=== PATIENT | female | born 1935 | race Caucasian/White ===

== ENCOUNTER → 2017-04-16 | Day surgery (SDC) | payer MEDICARE, BC ==
[~2017-04-16] MED LIST: Lactated Ringers 1,000 ML IV SCH; Propofol 200 MG/20 ML SDV IV ONE
[2017-04-16 08:30] VITALS: BP 121/62
--- NOTE | 2017-04-16 12:49 | OR ---
DATE OF OPERATION: 04/16/2017 PREOPERATIVE DIAGNOSIS: FOLLOWUP POLYPS. POSTOPERATIVE DIAGNOSIS: FOLLOWUP POLYPS. SURGEON: Campbell العلي MD PROCEDURE: FULL-LENGTH COLONOSCOPY WITH HYPERPLASTIC POLYP REMOVAL X4. ANESTHESIA: SUPPLY CATALOGUER due to advanced age. COMPLICATIONS: None. SPECIMEN: Four separate small polyps, likely all hyperplastic. FINDINGS: 1. Full-length colonoscopy. 2. Minimal sigmoid diverticulosis. 3. No rectosigmoid polyp recurrence. 4. Four small likely hyperplastic polyps, three right-sided and one rectal. RECOMMENDATIONS: We will give followup recommendations pending path reports. INDICATIONS: Last year Mrs. Mcdonald had a colonoscopy with polyps removed. 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 We recommended a 1-year followup. DESCRIPTION OF PROCEDURE: The patient was prepped and draped, placed in the left lateral decubitus position. A lubricated Olympus colonoscope was inserted and ultimately advanced to the cecum where we directly visualized the ileocecal valve and appendiceal orifice. The bowel prep was adequate. The patient is tortuous along her transverse colon, which makes it scope a little tougher to pass, but we safely reached the cecal pouch. Upon withdrawal, the cecum and the proximal ascending colon appeared benign. Last year, the patient did have a flat adenoma along the haustral fold. I could not find any evidence of that today. Thorough searching was done there. Near the hepatic flexure in the distal ascending colon, the patient had 3 small hyperplastic appearing polyps, all removed in their entirety with cold forceps biopsy x2 at each site. The rest of the transverse and descending colon was benign. The patient did have a few diverticula in the sigmoid colon, but very minimal. No acute inflammatory changes. There were no vascular abnormalities or bleeding sites. No signs of colitis. We did evaluate the rectosigmoid junction for any polyp recurrence. I could find none. The rectal vault itself appeared benign. She did have one another small hyperplastic polyp which was removed with a cold forceps biopsy x2. Perianal area appeared benign. Air was suctioned. Scope was removed without complication. JOSEFA/MYNOR /[id number]
== END ==
LOC: CC.SDS 06:50
PROVIDERS: ATTEND Family Medicine
DX: Z12.11 Encounter for screening for malignant neoplasm of colon (principal); D12.2 Benign neoplasm of ascending colon; D12.8 Benign neoplasm of rectum; K57.30 Diverticulosis of large intestine without perforation or abscess without bleeding; I48.91 Unspecified atrial fibrillation; I11.0 Hypertensive heart disease with heart failure; I50.9 Heart failure, unspecified; E78.00 Pure hypercholesterolemia, unspecified; I25.2 Old myocardial infarction; F17.210 Nicotine dependence, cigarettes, uncomplicated; Z88.1 Allergy status to other antibiotic agents; Z88.8 Allergy status to other drugs, medicaments and biological substances; Z95.1 Presence of aortocoronary bypass graft; Z95.5 Presence of coronary angioplasty implant and graft; Z79.01 Long term (current) use of anticoagulants; Z79.899 Other long term (current) drug therapy; Z98.890 Other specified postprocedural states
CPT/HCPCS: 36415; 45380; 85610; J2704; J7120; 00810; 88305

== ENCOUNTER 2019-05-28 12:27 | Emergency (ER) | payer MEDICARE, BC ==
[2019-05-28] MEDS ORDERED: Nitroglycerin 2% Oint 1 GM UD Packet TOP ONE (13:20)
[2019-05-28] MEDS ORDERED: Sodium Chloride 0.9% 1,000 ML IV ONE (13:20)
--- NOTE | 2019-05-28 13:26 | EDM.PDOC ---
ED HPI GENERAL MEDICAL PROBLEM - General Chief Complaint: Chest Pain Stated Complaint: "Having left arm pain and chest pain" Time Seen by Provider: 05/28/19 12:52 Source of Information: Reports: Patient, Family History Limitations: Reports: No Limitations - History of Present Illness INITIAL COMMENTS - FREE TEXT/NARRATIVE: This patient is an 84 year old female that presents to the ER with daughter. Patient reports for the last 2 weeks she has had a pain in her left chest that radiates down the left arm. Patient reports that the pain comes and goes, but more often than not, its present. Patient reports she does not notice anything makes it better or worse. The daughter reports patient does complain more when patient is walking or active. Patient reports that she was seen by her PCP for CP and Dizziness. She reports that on Wednesday she had a carotid US performed that was normal. Her PCP saw her and ordered a stress test that was done 05/25/19. Patient reports the nurse called patient with results telling her the Stress test was abnormal and she made her a electroplater automatic appointment for June 12. The patient reports she still continued to have chest pain. She reports that this morning the chest pain became worse in nature. Onset Date: 05/14/19 Duration: Week(s): (2) Location: Reports: Chest, Radiates to (left arm) Quality: Reports: Other ("Heavy") Severity: Mild Improves with: Reports: None Worsens with: Reports: None Associated Symptoms: Reports: Chest Pain, Shortness of Breath. Denies: Confusion, Cough, cough w sputum, Diaphoresis, Fever/Chills, Headaches, Loss of Appetite, Malaise, Nausea/Vomiting, Rash, Seizure, Syncope, Weakness Left Arm Pain Score (Numeric/FACES): 6 - Related Data Allergies Allergy/AdvReac Type Severity Reaction Status Date / Time amoxicillin trihydrate Allergy Cannot Verified 05/28/19 12:56 [From Augmentin] Remember atorvastatin calcium Allergy Cannot Verified 05/28/19 12:56 [From Lipitor] Remember pitavastatin calcium Allergy Cannot Verified 05/28/19 12:56 [From Livalo] Remember potassium clavulanate Allergy Cannot Verified 05/28/19 12:56 [From Augmentin] Remember rosuvastatin calcium Allergy Cannot Verified 05/28/19 12:56 [From Crestor] Remember simvastatin [From Zocor] Allergy Cannot Verified 05/28/19 12:56 Remember Home Meds: Home Meds Acetaminophen [Tylenol] 325 mg PO DAILY PRN 04/13/16 [History] Isosorbide Mononitrate [Isosorbide Mononitrate ER] 30 mg PO DAILY 04/13/16 [ History] Lisinopril [Prinivil] 2.5 mg PO DAILY 04/13/16 [History] Metoprolol Succinate [Toprol XL] 50 mg PO DAILY 04/13/16 [History] Warfarin Sodium 4 mg PO DAILY 04/13/16 [History] Acetaminophen/Diphenhydramine [Acetaminophen Pm Gelcap] 1 each PO BEDTIME [History] Past Medical History Cardiovascular History: Reports: Afib, Bypass, High Cholesterol, Hypertension, SOB on Exertion, Stents ED ROS GENERAL - Review of Systems Review Of Systems: See Below Constitutional: Reports: No Symptoms HEENT: Reports: No Symptoms Respiratory: Reports: Shortness of Breath. Denies: Cough, Sputum Cardiovascular: Reports: Chest Pain, Dyspnea on Exertion. Denies: Edema Endocrine: Reports: No Symptoms GI/Abdominal: Reports: No Symptoms : Reports: No Symptoms Musculoskeletal: Reports: No Symptoms Skin: Reports: No Symptoms Neurological: Reports: No Symptoms Psychiatric: Reports: No Symptoms Hematologic/Lymphatic: Reports: No Symptoms Immunologic: Reports: No Symptoms ED EXAM, GENERAL - Physical Exam Exam: See Below Exam Limited By: No Limitations General Appearance: Alert, WD/WN, Moderate Distress (known abnormal stress test with CP) Eye Exam: Bilateral Eye: Normal Inspection, PERRL Ears: Normal External Exam, Normal Canal, Hearing Grossly Normal, Normal TMs Ear Exam: Bilateral Ear: Auricle Normal, Canal Normal, TM normal Nose: Normal Inspection, Normal Mucosa, No Blood Throat/Mouth: Normal Inspection, Normal Lips, Normal Teeth, Normal Gums, Normal Oropharynx, Normal Voice, No Airway Compromise Head: Atraumatic, Normocephalic Neck: Normal Inspection, Supple, Non-Tender, Full Range of Motion Respiratory/Chest: No Respiratory Distress, Lungs Clear, Normal Breath Sounds, No Accessory Muscle Use, Chest Non-Tender Cardiovascular: Normal Peripheral Pulses, No Edema, No Gallop, No JVD, No Murmur , No Rub, Irregularly Irregular (Rate 90) Peripheral Pulses: 2+: Carotid (L), Carotid (R), Radial (L), Radial (R), Posterior Tibial (L), Posterior Tibial (R), Dorsalis Pedis (L), Dorsalis Pedis ( R) GI/Abdominal: Normal Bowel Sounds, Soft, Non-Tender, No Organomegaly, No Distention, No Abnormal Bruit, No Mass, Pelvis Stable (Female) Exam: Deferred Rectal (Female) Exam: Deferred Back Exam: Normal Inspection, Full Range of Motion Extremities: Normal Inspection, Normal Range of Motion, Non-Tender, No Pedal Edema, Normal Capillary Refill Neurological: Alert, Oriented, Normal Cognition, Normal Gait, No Motor/Sensory Deficits Psychiatric: Normal Affect, Normal Mood Skin Exam: Warm, Dry, Intact, Normal Color, No Rash Lymphatic: No Adenopathy EKG INTERPRETATION EKG Date: 05/28/19 Time: 12:30 Rhythm: A-Fib Rate (Beats/Min): 91 Comparison: No Change Course - Vital Signs Last Recorded V/S: Last Vital Signs Temp 96.8 F 05/28/19 12:30 Pulse 97 05/28/19 12:30 Resp 20 05/28/19 12:30 BP 121/74 05/28/19 12:30 Pulse Ox - Orders/Labs/Meds Orders: Active Orders 24 hr Category Date Time Status Chest 2V [CR] Stat Exams 05/28/19 12:56 Taken Labs: Laboratory Tests 05/28/19 05/28/19 05/28/19 Range/Units 12:57 12:57 13:21 WBC 10.8 H (5.0-10.0) 10^3/uL RBC 4.31 (4.00-5.50) 10^6/uL Hgb 13.3 (12.0-16.0) g/dL Hct 40.7 (37.0-47.0) % MCV 94.4 H (82.0-94.0) fL MCH 30.9 (27.0-32.0) pg MCHC 32.7 L (33.0-38.0) g/dL RDW Coeff of Anne 14.5 (11.0-15.0) % Plt Count 216 (150-400) 10^3/uL Neut % (Auto) 65.0 (35-85) % Lymph % (Auto) 22.8 (10-55) % [place] % (Auto) 10.7 (0-16) % Eos % (Auto) 0.9 (0-5) % Baso % (Auto) 0.6 (0-3) % Neut # (Auto) 7.01 H (1.80-7.00) 10^3/uL Lymph # (Auto) 2.46 (1.00-4.80) 10^3/uL [place] # (Auto) 1.15 H (0.00-0.80) 10^3/uL Eos # (Auto) 0.10 (0.00-0.45) 10^3/uL Baso # (Auto) 0.06 10^3/uL PT 18.3 H (9.7-12.3) SEC INR 1.84 H (0.92-1.18) POC Sodium 140 (138-146) mmol/L POC Potassium 4.1 (3.5-4.9) mmol/L POC Chloride 100 (98-109) mmol/L POC Total CO2 25 (21-32) mmol/L POC BUN 15 (8-26) mg/dL POC Creatinine 0.8 (0.6-1.3) mg/dL POC Glucose 99 (70-99) mg/dL POC WB Ioniz Calcium 1.2 (1.12-1.32) Meds: Medications Discontinued Medications Generic Name Dose Route Start Last Admin Trade Name Freq PRN Reason Stop Dose Admin Aspirin 324 mg 05/28/19 13:36 05/28/19 13:04 Aspirin PO 05/28/19 13:37 324 mg ONETIME ONE Administration Sodium Chloride 1,000 mls @ 250 mls/hr 05/28/19 13:20 05/28/19 13:44 Normal Saline IV 05/28/19 17:19 250 mls/hr .BOLUS ONE Administration Nitroglycerin 0.5 gm 05/28/19 13:20 05/28/19 13:41 Nitro-Bid 2% TOP 05/28/19 13:21 0.5 gm ONETIME ONE Administration - Radiology Interpretation Free Text/Narrative:: CXR: NO acute changes - Re-Assessments/Exams Free Text/Narrative Re-Assessment/Exam: 05/28/19 13:33 Currently lab has some machine issues and is unable to run a CMP or troponin. I have ordered CBC, Bmp, and PT/INR. I also called [facility] to obtain stress test report. I have reviewed this stress result. It does show "Anterior and ateral wall ischemia suspicious for left coronary artery disease, possible left main. Recommend cardiology consultation and left heart catheterization." I then , called [facility] [address] and spoke to the ER Dr. Mantilla who has accepted transfer of the patient. Since patient has had the pain for 2 weeks, no EKG changes, will transfer via ground and hold on heparin. Will give nitro paste, asa, and fluids. The patient upon arrival into the ER, her pain is currently a 0 /10. Patient does report she is concerned it will return, because this is what her pain has been doing. Departure - Departure Time of Disposition: 13:27 Disposition: DC/Tfer to Acute Hospital 02 Reason for Transfer *Q: Primary PCI Indicated Condition: Serious Clinical Impression: Acute coronary syndrome, Chest pain due to CAD Referrals: PCP,Unknown [Primary Care Provider] - Forms: ED Department Discharge - My Orders Last 24 Hours: My Active Orders 05/28/19 12:56 Chest 2V [CR] Stat - Assessment/Plan Last 24 Hours: My Active Orders 05/28/19 12:56 Chest 2V [CR] Stat Plan: PLEASE SEE RN NOTE FOR PFSH. This patient is being transferred to [facility] [address]. The patient will go to the ER. Risks with the transfer are worsening of ischemia, CP, worsening of condition, , cardiac arrest. The benefits of transfer are cardiology consult, cardiac cath, cardiac intervention, higher level of care. The risks with staying in [facility] are continued cardiac ischemia, worsening of condition with possible cardiac , , continued CP. The benefits of staying in [facility] is close to home.
[2019-05-28 13:32] VITALS: BP 121/74
[2019-05-28] MEDS ORDERED: Aspirin 81 MG Tab.Chew PO ONE (13:36)
== END 2019-05-28 14:15 ==
LOC: CC.ED 12:27
DX: I24.9 Acute ischemic heart disease, unspecified (principal); I48.91 Unspecified atrial fibrillation; E78.00 Pure hypercholesterolemia, unspecified; I10 Essential (primary) hypertension; Z95.5 Presence of coronary angioplasty implant and graft; Z88.1 Allergy status to other antibiotic agents; Z88.8 Allergy status to other drugs, medicaments and biological substances; Z79.899 Other long term (current) drug therapy; Z79.01 Long term (current) use of anticoagulants
CPT/HCPCS: 36415; 71046; 80047; 85025; 85610; 99284; 99285-25; A9270-GY; J7030

== ENCOUNTER 2019-08-25 12:09 | Inpatient (IN) | payer MEDICARE, BC ==
[2019-08-25 12:43] LABS: CHLORIDE,CL 104 mEq/L (98-106); SODIUM,NA 141 mEq/L (136-145)
[2019-08-25] MEDS ORDERED: Acetaminophen 325 MG Tab PO PRN (13:16)
[2019-08-25] MEDS ORDERED: Furosemide 20 MG/2 ML VIAL IVPUSH ONE (13:16)
[2019-08-25] MEDS ORDERED: Pantoprazole 40 MG Vial IVPUSH SCH (13:30)
[2019-08-25] MEDS ORDERED: Sodium Chloride 0.9% 250 ML ONE (14:58)
[2019-08-25] MEDS ORDERED: Sodium Chloride 0.9% 250 ML IV SCH (15:30)
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
[2019-08-25 22:17] VITALS: BP 135/59; PULSE 112
[2019-08-26] MEDS ORDERED: Metoprolol Succinate 25 MG Tab.ER PO SCH (08:00)
[2019-08-26] MEDS ORDERED: Isosorbide Mononitrate 30 MG Tab.ER PO SCH (08:00)
[2019-08-26] MEDS ORDERED: PRAVASTATIN PO SCH (08:00)
[2019-08-26] MEDS ORDERED: Lisinopril 5 MG Tab PO SCH (08:00)
== END 2019-08-25 23:03 | DRG 281 ==
LOC: CC.FCMC 12:09 → CC.MS 12:09 → UNDOADMIN 13:07 → CC.MS 13:16
PROVIDERS: ADMIT Physician Assistant Medical; ATTEND Family Medicine
PROC: 30233N1 Transfusion of Nonautologous Red Blood Cells into Peripheral Vein, Percutaneous Approach (ICD-10-PCS; principal; 2019-08-25)
DX: I21.4 Non-ST elevation (NSTEMI) myocardial infarction (principal); K92.2 Gastrointestinal hemorrhage, unspecified; R42 Dizziness and giddiness; D64.9 Anemia, unspecified; I48.91 Unspecified atrial fibrillation; I50.9 Heart failure, unspecified; Z79.899 Other long term (current) drug therapy; Z79.82 Long term (current) use of aspirin; Z88.1 Allergy status to other antibiotic agents; Z88.8 Allergy status to other drugs, medicaments and biological substances; Z79.01 Long term (current) use of anticoagulants
CPT/HCPCS: 36415; 36430; 71046; 80053; 81001; 82150; 82550; 82728; 83540; 83550; 83615; 83880; 84484; 85018; 85025; 85610; 86850; 86900; 86901; 86920; 86922; 93005; C9113; J1940; P9016

== ENCOUNTER 2020-02-13 13:36 | Observation (INO) | payer MEDICARE, BC ==
[2020-02-13 14:12] LABS: PTT,PARTIAL THROMBOPLSTIN TIME 27.5 SEC (23.2-32.3)
--- NOTE | 2020-02-13 14:17 | EDM.PDOC ---
ED HPI GENERAL MEDICAL PROBLEM - General Chief Complaint: Chest Pain Stated Complaint: HEART ISSUES Time Seen by Provider: 02/13/20 14:05 Source of Information: Reports: Patient, Family History Limitations: Reports: No Limitations - History of Present Illness INITIAL COMMENTS - FREE TEXT/NARRATIVE: Bertha is an 84 year old female with PMH of CAD, a fib, hyperlipidemia, mitral regurgitation, GI bleed, hypertension, PAD, and current daily tobacco use, who presents to the ED with c/o left anterior chest pain. Reports the pain initially started this morning. Describes the pain as a dull ache. She reports chronic shortness of breath, does not feel it is worse than baseline. Has also been having occasional episodes of dizziness/lightheadedness and weakness over the last month or so. She reports when she has these episodes, she has to lie down in order to feel better. Denies any fever, malaise, cough, N/V/D, abdominal pain, dysuria, urinary frequency, urgency. 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 She is managed medically. Did have to stop antiplatelets and anticoagulation due to GI bleed this past fall. She reports she did however restart her 81 mg aspirin about 1 month ago. She does continue to smoke 1ppd, for approximately the past 58 years. Onset: Today Duration: Constant Location: Reports: Chest Quality: Reports: Ache Severity: Mild Associated Symptoms: Reports: Chest Pain, Shortness of Breath, Weakness. Denies : Confusion, Cough, cough w sputum, Diaphoresis, Fever/Chills, Headaches, Loss of Appetite, Malaise, Nausea/Vomiting, Rash, Seizure, Syncope Left Upper Chest Pain Score (Numeric/FACES): 2 - Related Data Allergies Allergy/AdvReac Type Severity Reaction Status Date / Time amoxicillin trihydrate Allergy Cannot Verified 02/13/20 14:25 [From Augmentin] Remember atorvastatin calcium Allergy Cannot Verified 02/13/20 14:25 [From Lipitor] Remember pitavastatin calcium Allergy Cannot Verified 02/13/20 14:25 [From Livalo] Remember potassium clavulanate Allergy Cannot Verified 02/13/20 14:25 [From Augmentin] Remember rosuvastatin calcium Allergy Cannot Verified 02/13/20 14:25 [From Crestor] Remember simvastatin [From Zocor] Allergy Cannot Verified 02/13/20 14:25 Remember Home Meds: Home Meds Acetaminophen [Tylenol] 325 mg PO DAILY PRN 04/13/16 [History] Isosorbide Mononitrate [Isosorbide Mononitrate ER] 30 mg PO DAILY 04/13/16 [ History] Lisinopril [Prinivil] 2.5 mg PO DAILY 04/13/16 [History] Metoprolol Succinate [Toprol XL] 50 mg PO DAILY 04/13/16 [History] Acetaminophen/Diphenhydramine [Acetaminophen Pm Gelcap] 1 each PO BEDTIME [History] Aspirin 1 tab PO DAILY 08/25/19 [History] Pravastatin [Pravachol] 1 tab PO DAILY 08/25/19 [History] Past Medical History Cardiovascular History: Reports: Afib, Bypass, High Cholesterol, Hypertension, SOB on Exertion, Stents [employer] History: Reports: Social & Family History - Family History Family Medical History: Noncontributory ED ROS GENERAL - Review of Systems Review Of Systems: Comprehensive ROS is negative, except as noted in HPI. ED EXAM, GENERAL - Physical Exam Exam: See Below Exam Limited By: No Limitations General Appearance: Alert, WD/WN, No Apparent Distress Eye Exam: Bilateral Eye: EOMI, Normal Fundi, Normal Inspection, PERRL Head: Atraumatic, Normocephalic Neck: Normal Inspection, Supple, Non-Tender, Full Range of Motion Respiratory/Chest: No Respiratory Distress, Lungs Clear, No Accessory Muscle Use , Chest Non-Tender, Decreased Breath Sounds Cardiovascular: Normal Peripheral Pulses, No Edema, No Gallop, No JVD, No Rub, Systolic Murmur, Irregularly Irregular GI/Abdominal: Normal Bowel Sounds, Soft, Non-Tender, No Organomegaly, No Distention, No Abnormal Bruit, No Mass Back Exam: Normal Inspection, Full Range of Motion, NT Extremities: Normal Inspection, Normal Range of Motion, Non-Tender, Normal Capillary Refill, No Pedal Edema Neurological: Alert, Oriented, CN II-XII Intact, Normal Cognition, Normal Gait, Normal Reflexes, No Motor/Sensory Deficits Psychiatric: Normal Affect, Normal Mood Skin Exam: Warm, Dry, Intact, Normal Color, No Rash Course - Vital Signs Last Recorded V/S: Last Vital Signs Temp 97.5 F 02/13/20 15:12 Pulse 75 02/13/20 15:12 Resp 16 02/13/20 15:12 BP 105/67 02/13/20 15:12 Pulse Ox 98 02/13/20 15:12 - Orders/Labs/Meds Orders: Active Orders 24 hr Category Date Time Status Patient Status [ADT] Routine ADT 02/13/20 16:09 Active Cardiac Monitoring [RC] CONTINUOUS Care 02/13/20 16:09 Active Oxygen Therapy [RC] PRN Care 02/13/20 16:09 Active Pulse Oximetry [RC] PRN Care 02/13/20 16:09 Active Up With Assistance [RC] ASDIRECTED Care 02/13/20 16:09 Active VTE/DVT Education [RC] PER UNIT ROUTINE Care 02/13/20 16:09 Active Vital Signs [RC] Q4H Care 02/13/20 16:09 Active Heart Healthy Diet [DIET] Diet 02/13/20 Dinner Active Chest 2V [CR] Routine Exams 02/13/20 Taken CREATINE KINASE,CK [CHEM] Timed Lab 02/13/20 18:00 Ordered CULTURE URINE [RM] Stat Lab 02/13/20 15:00 Received LACTATE DEHYDROGENASE,LDH [CHEM] Timed Lab 02/13/20 18:00 Ordered TROPONIN I [CHEM] Timed Lab 02/13/20 18:00 Ordered Acetaminophen [Tylenol] Med 02/13/20 16:09 Active 325 mg PO DAILY PRN Acetaminophen [Tylenol] Med 02/13/20 16:09 Active 650 mg PO Q4H PRN Acetaminophen/Diphenhydramine [Acetaminophen Pm Gelcap] Med 02/13/20 20:00 Pending 1 each PO BEDTIME Aspirin [Halfprin] Med 02/14/20 08:00 Active 81 mg PO DAILY Enoxaparin [Lovenox] Med 02/13/20 20:00 Active 40 mg SUBCUT Q24H Isosorbide Mononitrate [Imdur] Med 02/14/20 08:00 Pending 30 mg PO DAILY Lisinopril [Prinivil] Med 02/14/20 08:00 Pending 0 mg PO DAILY Metoprolol Succinate [Toprol XL] Med 02/14/20 08:00 Pending 0 mg PO DAILY Nitroglycerin [Nitro-Bid 2%] Med 02/13/20 16:09 Ordered 1 gm TOP Q8H Pravastatin Med 02/14/20 08:00 Active 1 tab PO DAILY Sodium Chloride 0.9% [Saline Flush] Med 02/13/20 16:09 Active 10 ml FLUSH ASDIRECTED PRN Temazepam [Restoril] Med 02/13/20 20:00 Pending 15 mg PO BEDTIME PRN cefTRIAXone [Rocephin] Med 02/13/20 16:30 Active 1 gm IVPUSH BEDTIME Saline Lock Insert [OM.PC] Routine Oth 02/13/20 16:09 Ordered Resuscitation Status Routine Resus Stat 02/13/20 15:38 Ordered EKG 12 Lead [EK] Routine Ther 02/13/20 18:00 Ordered Medication Orders Acetaminophen (Tylenol) 650 mg PO Q4H PRN PRN Reason: Pain (Mild 1-3)/fever Acetaminophen (Tylenol) 325 mg PO DAILY PRN PRN Reason: Pain Aspirin (Halfprin) 81 mg PO DAILY [facility] Ceftriaxone Sodium (Rocephin) 1 gm IVPUSH BEDTIME [facility] Enoxaparin Sodium (Lovenox) 40 mg SUBCUT Q24H [facility] Isosorbide Mononitrate (Imdur) 30 mg PO DAILY [facility] Nitroglycerin (Nitro-Bid 2%) 1 gm TOP Q8H [facility] Acetaminophen/Diphenhydramine [ Acetaminophen Pm Gelcap] 1 1 each PO BEDTIME [facility] Lisinopril [Prinivil (] 2.5 Mg) 0 mg PO DAILY [facility] Metoprolol Succinate ([Toprol Xl] 50 Mg) 0 mg PO DAILY [facility] Non-Formulary Medication (Pravastatin) 1 tab PO DAILY [facility] Sodium Chloride (Saline Flush) 10 ml FLUSH ASDIRECTED PRN PRN Reason: Keep Vein Open Temazepam (Restoril) 15 mg PO BEDTIME PRN PRN Reason: Sleep Labs: Laboratory Tests 02/13/20 02/13/20 02/13/20 Range/Units 13:58 13:58 14:00 WBC 9.3 (5.0-10.0) 10^3/uL RBC 4.30 (4.00-5.50) 10^6/uL Hgb 12.9 (12.0-16.0) g/dL Hct 40.0 (37.0-47.0) % MCV 93.0 (82.0-94.0) fL MCH 30.0 (27.0-32.0) pg MCHC 32.3 L (33.0-38.0) g/dL RDW Coeff of Anne 16.8 H (11.0-15.0) % Plt Count 206 (150-400) 10^3/uL Neut % (Auto) 67.4 (35-85) % Lymph % (Auto) 20.6 (10-55) % Laurens % (Auto) 10.9 (0-16) % Eos % (Auto) 0.8 (0-5) % Baso % (Auto) 0.3 (0-3) % Neut # (Auto) 6.27 (1.80-7.00) 10^3/uL Lymph # (Auto) 1.91 (1.00-4.80) 10^3/uL [place] # (Auto) 1.01 H (0.00-0.80) 10^3/uL Eos # (Auto) 0.07 (0.00-0.45) 10^3/uL Baso # (Auto) 0.03 10^3/uL PT 10.8 (9.7-12.3) SEC INR 1.05 (0.92-1.18) APTT 27.5 (23.2-32.3) SEC Sodium 138 (136-145) mEq/L Potassium 3.7 (3.5-5.0) mEq/L Chloride 101 (98-106) mEq/L Carbon Dioxide 29 (21-32) mmol/L BUN 17 (7-18) mg/dL Creatinine 0.9 (0.6-1.0) mg/dL Est Cr Clr Drug Dosing 38.49 mL/min Estimated GFR (MDRD) 60 (>=60) mL/min Glucose 101 H (75-99) mg/dL Calcium 9.2 (8.4-10.1) mg/dL Total Bilirubin 0.7 (0.0-1.0) mg/dL AST 17 (15-37) U/L ALT 16 (12-78) U/L Alkaline Phosphatase 55 (46-116) U/L Lactate Dehydrogenase 186 (100-190) U/L Creatine Kinase 27 (21-215) U/L Troponin I 0.244 H (0.00-0.06) ng/mL Total Protein 7.4 (6.4-8.2) g/dL Albumin 3.7 (3.4-5.0) g/dL Lipase 159 (73-393) U/L Urine Color (YELLOW) Urine Appearance (CLEAR) Urine pH (4.5-8.0) Ur Specific [place] (1.003-1.020) Urine Protein (NEGATIVE) mg/dL Urine Glucose (UA) (NEGATIVE) mg/dL Urine Ketones (NEGATIVE) mg/dL Urine Occult Blood (NEGATIVE) Urine Nitrite (NEGATIVE) Urine Bilirubin (NEGATIVE) Urine Urobilinogen (0.2-1.0) EU/dL Ur Leukocyte Esterase (NEGATIVE) Urine RBC (0-5) /HPF Urine WBC (0-5) /HPF Ur Squamous Epith Cells (NOT SEEN) /HPF Urine Bacteria (NOT SEEN) /HPF Urinalysis Comment 02/13/20 Range/Units 15:00 WBC (5.0-10.0) 10^3/uL RBC (4.00-5.50) 10^6/uL Hgb (12.0-16.0) g/dL Hct (37.0-47.0) % MCV (82.0-94.0) fL MCH (27.0-32.0) pg MCHC (33.0-38.0) g/dL RDW Coeff of Anne (11.0-15.0) % Plt Count (150-400) 10^3/uL Neut % (Auto) (35-85) % Lymph % (Auto) (10-55) % Laurens % (Auto) (0-16) % Eos % (Auto) (0-5) % Baso % (Auto) (0-3) % Neut # (Auto) (1.80-7.00) 10^3/uL Lymph # (Auto) (1.00-4.80) 10^3/uL [place] # (Auto) (0.00-0.80) 10^3/uL Eos # (Auto) (0.00-0.45) 10^3/uL Baso # (Auto) 10^3/uL PT (9.7-12.3) SEC INR (0.92-1.18) APTT (23.2-32.3) SEC Sodium (136-145) mEq/L Potassium (3.5-5.0) mEq/L Chloride (98-106) mEq/L Carbon Dioxide (21-32) mmol/L BUN (7-18) mg/dL Creatinine (0.6-1.0) mg/dL Est Cr Clr Drug Dosing mL/min Estimated GFR (MDRD) (>=60) mL/min Glucose (75-99) mg/dL Calcium (8.4-10.1) mg/dL Total Bilirubin (0.0-1.0) mg/dL AST (15-37) U/L ALT (12-78) U/L Alkaline Phosphatase (46-116) U/L Lactate Dehydrogenase (100-190) U/L Creatine Kinase (21-215) U/L Troponin I (0.00-0.06) ng/mL Total Protein (6.4-8.2) g/dL Albumin (3.4-5.0) g/dL Lipase (73-393) U/L Urine Color Yellow (YELLOW) Urine Appearance Slightly cloudy (CLEAR) Urine pH 6.5 (4.5-8.0) Ur Specific [place]comb 1.010 (1.003-1.020) Urine Protein Negative (NEGATIVE) mg/dL Urine Glucose (UA) Negative (NEGATIVE) mg/dL Urine Ketones Negative (NEGATIVE) mg/dL Urine Occult Blood Large H (NEGATIVE) Urine Nitrite Negative (NEGATIVE) Urine Bilirubin Negative (NEGATIVE) Urine Urobilinogen 0.2 (0.2-1.0) EU/dL Ur Leukocyte Esterase Large H (NEGATIVE) Urine RBC 50-75 H (0-5) /HPF Urine WBC 20-30 H (0-5) /HPF Ur Squamous Epith Cells Occasional H (NOT SEEN) /HPF Urine Bacteria Few H (NOT SEEN) /HPF Urinalysis Comment Meds: Medications Generic Name Dose Route Start Last Admin Trade Name Freq PRN Reason Stop Dose Admin Acetaminophen 650 mg 02/13/20 16:09 Tylenol PO Q4H PRN Pain (Mild 1-3)/fever Acetaminophen 325 mg 02/13/20 16:09 Tylenol PO DAILY PRN Pain Aspirin 81 mg 02/14/20 08:00 Halfprin PO DAILY [facility] Ceftriaxone Sodium 1 gm 02/13/20 16:30 Rocephin IVPUSH BEDTIME [facility] Enoxaparin Sodium 40 mg 02/13/20 20:00 Lovenox SUBCUT Q24H [facility] Isosorbide Mononitrate 30 mg 02/14/20 08:00 Imdur PO DAILY [facility] Nitroglycerin 1 gm 02/13/20 16:09 Nitro-Bid 2% TOP Q8H [facility] Acetaminophen/ 1 each 02/13/20 20:00 Diphenhydramine [ PO Acetaminophen Pm BEDTIME [facility] Gelcap] 1 Lisinopril [Prinivil 0 mg 02/14/20 08:00 ] 2.5 Mg PO DAILY [facility] Metoprolol Succinate 0 mg 02/14/20 08:00 [Toprol Xl] 50 Mg PO DAILY [facility] Non-Formulary Medication 1 tab 02/14/20 08:00 Pravastatin PO DAILY [facility] Sodium Chloride 10 ml 02/13/20 16:09 Saline Flush FLUSH ASDIRECTED PRN Keep Vein Open Temazepam 15 mg 02/13/20 20:00 Restoril PO BEDTIME PRN Sleep Departure - Departure Time of Disposition: 15:25 Disposition: Refer to Observation Condition: Fair Clinical Impression: Chest pain due to CAD UTI (urinary tract infection) Qualifiers: Urinary tract infection type: site unspecified Hematuria presence: with hematuria Qualified Code(s): N39.0 - Urinary tract infection, site not specified ; R31.9 - Hematuria, unspecified Atrial fibrillation Qualifiers: Atrial fibrillation type: permanent Qualified Code(s): I48.21 - Permanent atrial fibrillation Referrals: Campbell العلي MD [Primary Care Provider] - Forms: ED Department Discharge Sepsis Event Note - Focused Exam Vital Signs: Vital Signs Temp Pulse Resp BP Pulse Ox 02/13/20 15:12 97.5 F 75 16 105/67 98 02/13/20 14:57 97.8 F 70 14 117/68 96 02/13/20 14:40 97.4 F 81 14 115/77 98 02/13/20 14:35 97.4 F 80 16 115/77 98 02/13/20 14:25 97.3 F 76 16 118/70 94 L 02/13/20 14:05 97.9 F 81 17 72/38 L 94 L 02/13/20 13:47 98.1 F 83 20 125/74 95 Date Exam was Performed: 02/13/20 Time Exam was Performed: 16:30 - Problem List & Annotations (1) Chest pain due to CAD SNOMED Code(s): 017341307, 567651757 Code(s): I25.119 - ATHSCL HEART DISEASE OF [place] ART W UNSP ANG PCTRS Status: Acute Current Visit: Yes (2) Atrial fibrillation SNOMED Code(s): 63866107 Code(s): I48.91 - UNSPECIFIED ATRIAL FIBRILLATION Status: Acute Current Visit: Yes Qualifiers: Atrial fibrillation type: permanent Qualified Code(s): I48.21 - Permanent atrial fibrillation (3) UTI (urinary tract infection) SNOMED Code(s): 47726704 Code(s): N39.0 - URINARY TRACT INFECTION, SITE NOT SPECIFIED Status: Acute Current Visit: Yes Qualifiers: Urinary tract infection type: site unspecified Hematuria presence: with hematuria Qualified Code(s): N39.0 - Urinary tract infection, site not specified; R31.9 - Hematuria, unspecified - My Orders Last 24 Hours: My Active Orders 02/13/20 Chest 2V [CR] Routine 02/13/20 15:00 CULTURE URINE [RM] Stat 02/13/20 15:38 Resuscitation Status Routine 02/13/20 16:09 Patient Status [ADT] Routine Cardiac Monitoring [RC] CONTINUOUS Oxygen Therapy [RC] PRN Pulse Oximetry [RC] PRN Up With Assistance [RC] ASDIRECTED VTE/DVT Education [RC] PER UNIT ROUTINE Vital Signs [RC] Q4H Acetaminophen [Tylenol] 325 mg PO DAILY PRN Acetaminophen [Tylenol] 650 mg PO Q4H PRN Nitroglycerin [Nitro-Bid 2%] 1 gm TOP Q8H Sodium Chloride 0.9% [Saline Flush] 10 ml FLUSH ASDIRECTED PRN Saline Lock Insert [OM.PC] Routine 02/13/20 16:30 cefTRIAXone [Rocephin] 1 gm IVPUSH BEDTIME 02/13/20 18:00 CREATINE KINASE,CK [CHEM] Timed LACTATE DEHYDROGENASE,LDH [CHEM] Timed TROPONIN I [CHEM] Timed EKG 12 Lead [EK] Routine 02/13/20 20:00 Acetaminophen/Diphenhydramine [Acetaminophen Pm Gelcap] 1 each PO BEDTIME Enoxaparin [Lovenox] 40 mg SUBCUT Q24H Temazepam [Restoril] 15 mg PO BEDTIME PRN 02/13/20 Dinner Heart Healthy Diet [DIET] 02/14/20 08:00 Aspirin [Halfprin] 81 mg PO DAILY Isosorbide Mononitrate [Imdur] 30 mg PO DAILY Lisinopril [Prinivil] 0 mg PO DAILY Metoprolol Succinate [Toprol XL] 0 mg PO DAILY Pravastatin 1 tab PO DAILY - Assessment/Plan Admission H&P: Please use this note as an admission H&P Last 24 Hours: My Active Orders 02/13/20 Chest 2V [CR] Routine 02/13/20 15:00 CULTURE URINE [RM] Stat 02/13/20 15:38 Resuscitation Status Routine 02/13/20 16:09 Patient Status [ADT] Routine Cardiac Monitoring [RC] CONTINUOUS Oxygen Therapy [RC] PRN Pulse Oximetry [RC] PRN Up With Assistance [RC] ASDIRECTED VTE/DVT Education [RC] PER UNIT ROUTINE Vital Signs [RC] Q4H Acetaminophen [Tylenol] 325 mg PO DAILY PRN Acetaminophen [Tylenol] 650 mg PO Q4H PRN Nitroglycerin [Nitro-Bid 2%] 1 gm TOP Q8H Sodium Chloride 0.9% [Saline Flush] 10 ml FLUSH ASDIRECTED PRN Saline Lock Insert [OM.PC] Routine 02/13/20 16:30 cefTRIAXone [Rocephin] 1 gm IVPUSH BEDTIME 02/13/20 18:00 CREATINE KINASE,CK [CHEM] Timed LACTATE DEHYDROGENASE,LDH [CHEM] Timed TROPONIN I [CHEM] Timed EKG 12 Lead [EK] Routine 02/13/20 20:00 Acetaminophen/Diphenhydramine [Acetaminophen Pm Gelcap] 1 each PO BEDTIME Enoxaparin [Lovenox] 40 mg SUBCUT Q24H Temazepam [Restoril] 15 mg PO BEDTIME PRN 02/13/20 Dinner Heart Healthy Diet [DIET] 02/14/20 08:00 Aspirin [Halfprin] 81 mg PO DAILY Isosorbide Mononitrate [Imdur] 30 mg PO DAILY Lisinopril [Prinivil] 0 mg PO DAILY Metoprolol Succinate [Toprol XL] 0 mg PO DAILY Pravastatin 1 tab PO DAILY Assessment:: Chest Pain due to CAD UTI Atrial Fibrillation, permanent Plan: Patient has EKG changes as compared to EKG from 07/2020 in inferior leads. Troponin is indeterminant range. Discussed lab results with patient and daughter. Did discuss potential need for transfer to cardiology consultation if cardiac enzymes worsen. Patient does not wish to transfer but is agreeable to further discussion regarding this once repeat labs are available. Will admit to observation with telemetry for serial cardiac enzymes and EKG. Will continue current dose Imdur and initiate Nitro paste every 8 hrs. Will also start Rocephin for UTI, as this could potentially be cause of patient' s dizziness. Patient transferred to floor in satisfactory condition. Daughter and patient agreeable with plan.
[2020-02-13] MEDS ORDERED: Acetaminophen 325 MG Tab PO PRN ×2 (16:09)
[2020-02-13] MEDS ORDERED: Sodium Chloride 0.9% 10 ML Syringe FLUSH PRN (16:09)
[2020-02-13] MEDS ORDERED: cefTRIAXone 1 GM Vial IVPUSH SCH (16:30)
[2020-02-13] MEDS: Nitroglycerin 2% Oint 1 GM UD Packet TOP SCH (16:40)
[2020-02-13] MEDS ORDERED: cefTRIAXone 1 GM Vial IM ONE (18:00)
[2020-02-13] MEDS ORDERED: Lidocaine 1% 20 ML MDV ONE (18:11)
[2020-02-13] MEDS: Enoxaparin 40 MG/0.4 ML Syringe SUBCUT SCH (19:13)
[2020-02-13] MEDS: Simvastatin 20 MG Tab PO SCH (19:14)
[2020-02-13] MEDS ORDERED: Temazepam 15 MG Cap PO PRN (20:00)
[2020-02-13] MEDS ORDERED: ACETAMINOPHEN PO SCH (20:00)
[2020-02-13] MEDS ORDERED: Isosorbide Mononitrate 30 MG Tab.ER PO SCH (20:00)
[2020-02-13] MEDS ORDERED: DIPHENHYDRAMINE PO SCH (20:00)
[2020-02-14] MEDS: Nitroglycerin 2% Oint 1 GM UD Packet TOP SCH ×2 (00:07→08:03)
[2020-02-14] MEDS ORDERED: PRAVASTATIN PO SCH (08:00)
[2020-02-14] MEDS: Lisinopril 5 MG Tab PO SCH (08:03)
[2020-02-14] MEDS: Aspirin 81 MG Tab.EC PO SCH (08:03)
[2020-02-14] MEDS: Metoprolol Succinate 25 MG Tab.ER PO SCH (08:03)
--- NOTE | 2020-02-14 14:26 | PCM.PN ---
- General Info Date of Service: 02/14/20 Admission Dx/Problem (Free Text): Chest Pain R/O IA Functional Status: Reports: Pain Controlled, Tolerating Diet, Ambulating - Review of Systems General: Denies: Weakness, Fatigue, Malaise HEENT: Reports: No Symptoms Pulmonary: Denies: Shortness of Breath, Cough Cardiovascular: Denies: Chest Pain, Edema, Lightheadedness Gastrointestinal: Denies: Abdominal Pain, Nausea, Vomiting Genitourinary: Reports: No Symptoms Musculoskeletal: Reports: No Symptoms Skin: Reports: No Symptoms Neurological: Denies: Headache, Weakness - Patient Data Vitals - Most Recent: Last Vital Signs Temp 98.3 F 02/14/20 12:00 Pulse 78 02/14/20 12:00 Resp 18 02/14/20 12:00 BP 97/62 02/14/20 12:00 Pulse Ox 96 02/14/20 12:00 Weight - Most Recent: 140 lb Lab Results Last 24 Hours: Laboratory Results - last 24 hr 02/13/20 02/13/20 02/13/20 Range/Units 13:58 14:00 15:00 PT 10.8 (9.7-12.3) SEC INR 1.05 (0.92-1.18) APTT 27.5 (23.2-32.3) SEC Sodium 138 (136-145) mEq/L Potassium 3.7 (3.5-5.0) mEq/L Chloride 101 (98-106) mEq/L Carbon Dioxide 29 (21-32) mmol/L BUN 17 (7-18) mg/dL Creatinine 0.9 (0.6-1.0) mg/dL Est Cr Clr Drug Dosing 38.49 mL/min Estimated GFR (MDRD) 60 (>=60) mL/min Glucose 101 H (75-99) mg/dL Calcium 9.2 (8.4-10.1) mg/dL Total Bilirubin 0.7 (0.0-1.0) mg/dL AST 17 (15-37) U/L ALT 16 (12-78) U/L Alkaline Phosphatase 55 (46-116) U/L Lactate Dehydrogenase 186 (100-190) U/L Creatine Kinase 27 (21-215) U/L Troponin I 0.244 H (0.00-0.06) ng/mL Total Protein 7.4 (6.4-8.2) g/dL Albumin 3.7 (3.4-5.0) g/dL Lipase 159 (73-393) U/L Urine Color Yellow (YELLOW) Urine Appearance Slightly cloudy (CLEAR) Urine pH 6.5 (4.5-8.0) Ur Specific [place] 1.010 (1.003-1.020) Urine Protein Negative (NEGATIVE) mg/dL Urine Glucose (UA) Negative (NEGATIVE) mg/dL Urine Ketones Negative (NEGATIVE) mg/dL Urine Occult Blood Large H (NEGATIVE) Urine Nitrite Negative (NEGATIVE) Urine Bilirubin Negative (NEGATIVE) Urine Urobilinogen 0.2 (0.2-1.0) EU/dL Ur Leukocyte Esterase Large H (NEGATIVE) Urine RBC 50-75 H (0-5) /HPF Urine WBC 20-30 H (0-5) /HPF Ur Squamous Epith Cells Occasional H (NOT SEEN) /HPF Urine Bacteria Few H (NOT SEEN) /HPF Urinalysis Comment 02/13/20 02/14/20 Range/Units 17:55 06:50 PT (9.7-12.3) SEC INR (0.92-1.18) APTT (23.2-32.3) SEC Sodium (136-145) mEq/L Potassium (3.5-5.0) mEq/L Chloride (98-106) mEq/L Carbon Dioxide (21-32) mmol/L BUN (7-18) mg/dL Creatinine (0.6-1.0) mg/dL Est Cr Clr Drug Dosing mL/min Estimated GFR (MDRD) (>=60) mL/min Glucose (75-99) mg/dL Calcium (8.4-10.1) mg/dL Total Bilirubin (0.0-1.0) mg/dL AST (15-37) U/L ALT (12-78) U/L Alkaline Phosphatase (46-116) U/L Lactate Dehydrogenase 185 (100-190) U/L Creatine Kinase 29 (21-215) U/L Troponin I 0.315 H 0.356 H (0.00-0.06) ng/mL Total Protein (6.4-8.2) g/dL Albumin (3.4-5.0) g/dL Lipase (73-393) U/L Urine Color (YELLOW) Urine Appearance (CLEAR) Urine pH (4.5-8.0) Ur Specific [place] (1.003-1.020) Urine Protein (NEGATIVE) mg/dL Urine Glucose (UA) (NEGATIVE) mg/dL Urine Ketones (NEGATIVE) mg/dL Urine Occult Blood (NEGATIVE) Urine Nitrite (NEGATIVE) Urine Bilirubin (NEGATIVE) Urine Urobilinogen (0.2-1.0) EU/dL Ur Leukocyte Esterase (NEGATIVE) Urine RBC (0-5) /HPF Urine WBC (0-5) /HPF Ur Squamous Epith Cells (NOT SEEN) /HPF Urine Bacteria (NOT SEEN) /HPF Urinalysis Comment Fu[place] Results Last 24 Hours: Microbiology 02/13/20 15:00 Urine Culture - Preliminary Urine, Voided Med Orders - Current: Current Medications Acetaminophen (Tylenol) 650 mg PO Q4H PRN PRN Reason: Pain (Mild 1-3)/fever Acetaminophen (Tylenol) 325 mg PO DAILY PRN PRN Reason: Pain Aspirin (Halfprin) 81 mg PO DAILY [facility] Last Admin: 02/14/20 08:03 Dose: 81 mg Enoxaparin Sodium (Lovenox) 40 mg SUBCUT Q24H [facility] Last Admin: 02/13/20 19:13 Dose: 40 mg Isosorbide Mononitrate (Imdur) 60 mg PO BEDTIME [facility] Lisinopril (Prinivil) 2.5 mg PO DAILY [facility] Last Admin: 02/14/20 08:03 Dose: Not Given Metoprolol Succinate (Toprol Xl) 50 mg PO DAILY [facility] Last Admin: 02/14/20 08:03 Dose: 50 mg Acetaminophen/Diphenhydramine [ Acetaminophen Pm Gelcap] 1 1 each PO BEDTIME [facility] Simvastatin (Zocor) 20 mg PO BEDTIME [facility] Last Admin: 02/13/20 19:14 Dose: 20 mg Sodium Chloride (Saline Flush) 10 ml FLUSH ASDIRECTED PRN PRN Reason: Keep Vein Open Temazepam (Restoril) 15 mg PO BEDTIME PRN PRN Reason: Sleep Discontinued Medications Ceftriaxone Sodium (Rocephin) 1 gm IVPUSH BEDTIME [facility] Last Admin: 02/13/20 18:52 Dose: Not Given Ceftriaxone Sodium (Rocephin) 1 gm IM ONETIME ONE Stop: 02/13/20 18:01 Last Admin: 02/13/20 18:15 Dose: 1 gm Isosorbide Mononitrate (Imdur) 30 mg PO BEDTIME [facility] Last Admin: 02/13/20 19:14 Dose: 30 mg Lidocaine HCl (Xylocaine 1%) Confirm Administered Dose 20 ml .ROUTE .STK-MED ONE Stop: 02/13/20 18:12 Last Admin: 02/13/20 18:52 Dose: Not Given Nitroglycerin (Nitro-Bid 2%) 1 gm TOP Q8H [facility] Last Admin: 02/14/20 08:03 Dose: Not Given Non-Formulary Medication (Pravastatin) 1 tab PO DAILY [facility] - Exam General: Alert, Oriented HEENT: Mucous Membr. Moist/[place] Neck: Supple Lungs: Clear to Auscultation, Normal Respiratory Effort Cardiovascular: Regular Rate, Regular Rhythm GI/Abdominal Exam: Normal Bowel Sounds, Soft, Non-Tender Extremities: Normal Inspection, No Pedal Edema Skin: Warm, Dry Neurological: No New Focal Deficit Sepsis Event Note - Evaluation Sepsis Screening Result: No Definite Risk - Focused Exam Vital Signs: Vital Signs Temp Pulse Pulse Resp BP BP Pulse Ox 02/14/20 12:00 98.3 F 78 18 97/62 96 02/14/20 08:03 89 95/58 L 02/14/20 08:00 98.3 F 89 16 95/58 L 98 02/14/20 04:00 98.1 F 84 18 96/55 L 96 Date Exam was Performed: 02/14/20 Time Exam was Performed: 14:18 - Problem List & Annotations (1) Chest pain due to CAD SNOMED Code(s): 200579431, 542705465 Code(s): I25.119 - ATHSCL HEART DISEASE OF [place] COR ART W UNSP ANG PCTRS Status: Acute Priority: High Current Visit: Yes - Problem List Review Problem List Initiated/Reviewed/Updated: Yes - My Orders Last 24 Hours: My Active Orders 02/14/20 20:00 Isosorbide Mononitrate [Imdur] 60 mg PO BEDTIME - Assessment Assessment:: Chest Pain, R/O IA - Plan Plan:: Patient is feeling much better today, denies chest pain. She is ambulating to the bathroom and in room without pain or shortness of breath. Does have a history of CABG with notable blocking of these, cardiology has been providing medical management. Did develop a GI bleed last year so has been off antiplatelet therapy. Currently takes a baby aspirin and ImDur. She states her pain was relieved after taking the 4 baby ASA in ER yesterday. Serial troponin has remained indeterminate. EKGs unchanged. Will stop nitro paste. Increase dose of ImDur. Continue to monitor today.
[2020-02-14] MEDS: Enoxaparin 40 MG/0.4 ML Syringe SUBCUT SCH (19:19)
[2020-02-14] MEDS: Simvastatin 20 MG Tab PO SCH (19:20)
[2020-02-14] MEDS ORDERED: Isosorbide Mononitrate 60 MG Tab.ER PO SCH (20:00)
[2020-02-15] MEDS: Lisinopril 5 MG Tab PO SCH (07:43)
[2020-02-15 07:44] VITALS: BP 124/59; PULSE 95
[2020-02-15] MEDS: Metoprolol Succinate 25 MG Tab.ER PO SCH (07:44)
[2020-02-15] MEDS: Aspirin 81 MG Tab.EC PO SCH (07:44)
[2020-02-15 08:05] LABS: CHLORIDE,CL 103 mEq/L (98-106); SODIUM,NA 137 mEq/L (136-145)
--- NOTE | 2020-02-15 11:31 | PCM.DCSUM1 ---
Discharge Summary - Hospital Course Free Text/Narrative:: Bertha is an 84 year old female presented to ER with complaints of left anterior chest pain. Describes the pain as a dull ache. Does have chronic short of breath, worse more than her baseline. Also experiencing episodes of dizziness and weakness over the last month. Admits when she lies down, she does feel better. Has known history of CAD with history of 3 vessel CABG and known occlusion of the grafts as had coronary angiography in May of 2019. Did have to stop antiplatelets and anticoagulation due to GI bleed this past fall. Is taking aspirin 81 mg daily. Was given 4 baby ASA with improvement of her pain. Troponin was indeterminate, felt to have EKG changes. Admitted for serial enzymes and EKG. Diagnosis: Stroke: No Modified [place] Scale: No Symptoms at All Modified [place] Scale Score: 0 - Discharge Data Discharge Date: 02/15/20 Discharge Disposition: Home, Self-Care 01 Condition: Good - Referral to Home Health Primary Care Physician: Campbell العلي MD - Discharge Diagnosis/Problem(s) (1) Chest pain due to CAD SNOMED Code(s): 893122345, [id number] ICD Code: I25.119 - ATHSCL HEART DISEASE OF [place] ART W UNSP ANG PCTRS Status: Acute Priority: High - Patient Summary/Data Complications: none Hospital Course: Patient is doing well. Has not had any further pain since ER. Is ambulating well without shortness of breath or dizziness. Blood pressure stable with increasing her ImDur, stopping Nitro-Bid, today 124/59. Appetite has been good without nausea. Troponin did initially increase but remained indeterminate, today improved at 0.211. Will discharge home with increased ImDur 60 mg daily. Follow up with Dr. العلي in 2 weeks. - Patient Instructions Diet: Usual Diet as Tolerated Activity: As Tolerated - Discharge Plan *PRESCRIPTION DRUG MONITORING PROGRAM REVIEWED*: No *COPY OF PRESCRIPTION DRUG MONITORING REPORT IN PATIENT ANDRE: No Prescriptions/Med Rec: Isosorbide Mononitrate [Imdur] 60 mg PO BEDTIME #30 tab.er Home Medications: Home Meds Acetaminophen [Tylenol] 325 mg PO DAILY PRN 04/13/16 [History] Lisinopril [Prinivil] 2.5 mg PO DAILY 04/13/16 [History] Metoprolol Succinate [Toprol XL] 50 mg PO DAILY 04/13/16 [History] Acetaminophen/Diphenhydramine [Acetaminophen Pm Gelcap] 1 each PO BEDTIME [History] Aspirin 1 tab PO DAILY 08/25/19 [History] Pravastatin [Pravachol] 1 tab PO DAILY 08/25/19 [History] Isosorbide Mononitrate [Imdur] 60 mg PO BEDTIME #30 tab.er 02/15/20 [Rx] Forms: ED Department Discharge Referrals: Campbell العلي MD [Primary Care Provider] - (Follow up with Dr. العلي in 2 weeks) - Discharge Summary/Plan Comment DC Time >30 min.: No - General Info Date of Service: 02/15/20 Admission Dx/Problem (Free Text: Chest Pain R/O [place] Functional Status: Reports: Pain Controlled, Tolerating Diet, Ambulating - Review of Systems General: Reports: No Symptoms HEENT: Reports: No Symptoms Pulmonary: Denies: Shortness of Breath, Cough Cardiovascular: Denies: Chest Pain, Edema, Lightheadedness Gastrointestinal: Denies: Abdominal Pain, Nausea, Vomiting Genitourinary: Reports: No Symptoms Musculoskeletal: Reports: No Symptoms Skin: Reports: No Symptoms Neurological: Reports: No Symptoms Psychiatric: Reports: No Symptoms - Patient Data Vitals - Most Recent: Last Vital Signs Temp 98.2 F 02/15/20 08:00 Pulse 95 02/15/20 08:00 Resp 16 02/15/20 08:00 BP 124/59 L 02/15/20 08:00 Pulse Ox 97 02/15/20 08:00 Weight - Most Recent: 140 lb Lab Results - Last 24 hrs: Laboratory Results - last 24 hr 02/15/20 Range/Units 05:11 Sodium 137 (136-145) mEq/L Potassium 3.8 (3.5-5.0) mEq/L Chloride 103 (98-106) mEq/L Carbon Dioxide 26 (21-32) mmol/L BUN 18 (7-18) mg/dL Creatinine 0.8 (0.6-1.0) mg/dL Est Cr Clr Drug Dosing 43.30 mL/min Estimated GFR (MDRD) > 60 (>=60) mL/min Glucose 102 H (75-99) mg/dL Calcium 8.7 (8.4-10.1) mg/dL Troponin I 0.211 H (0.00-0.06) ng/mL RAFITA Results - Last 24 hrs: Microbiology 02/13/20 15:00 Urine Culture - Preliminary Urine, Voided Med Orders - Current: Current Medications Discontinued Medications Acetaminophen (Tylenol) 650 mg PO Q4H PRN PRN Reason: Pain (Mild 1-3)/fever Acetaminophen (Tylenol) 325 mg PO DAILY PRN PRN Reason: Pain Aspirin (Halfprin) 81 mg PO DAILY [facility] Last Admin: 02/15/20 07:44 Dose: 81 mg Ceftriaxone Sodium (Rocephin) 1 gm IVPUSH BEDTIME [facility] Last Admin: 02/13/20 18:52 Dose: Not Given Ceftriaxone Sodium (Rocephin) 1 gm IM ONETIME ONE Stop: 02/13/20 18:01 Last Admin: 02/13/20 18:15 Dose: 1 gm Enoxaparin Sodium (Lovenox) 40 mg SUBCUT Q24H [facility] Last Admin: 02/14/20 19:19 Dose: 40 mg Isosorbide Mononitrate (Imdur) 30 mg PO BEDTIME [facility] Last Admin: 02/13/20 19:14 Dose: 30 mg Isosorbide Mononitrate (Imdur) 60 mg PO BEDTIME [facility] Last Admin: 02/14/20 19:20 Dose: 60 mg Lidocaine HCl (Xylocaine 1%) Confirm Administered Dose 20 ml .ROUTE .STK-MED ONE Stop: 02/13/20 18:12 Last Admin: 02/13/20 18:52 Dose: Not Given Lisinopril (Prinivil) 2.5 mg PO DAILY [facility] Last Admin: 02/15/20 07:43 Dose: 2.5 mg Metoprolol Succinate (Toprol Xl) 50 mg PO DAILY [facility] Last Admin: 02/15/20 07:44 Dose: 50 mg Nitroglycerin (Nitro-Bid 2%) 1 gm TOP Q8H [facility] Last Admin: 02/14/20 08:03 Dose: Not Given Acetaminophen/Diphenhydramine [ Acetaminophen Pm Gelcap] 1 1 each PO BEDTIME [facility] Non-Formulary Medication (Pravastatin) 1 tab PO DAILY [facility] Simvastatin (Zocor) 20 mg PO BEDTIME [facility] Last Admin: 02/14/20 19:20 Dose: 20 mg Sodium Chloride (Saline Flush) 10 ml FLUSH ASDIRECTED PRN PRN Reason: Keep Vein Open Temazepam (Restoril) 15 mg PO BEDTIME PRN PRN Reason: Sleep - Exam General: Reports: Alert, Oriented HEENT: Reports: Mucous Membr. Moist/[place] Neck: Reports: Supple Lungs: Reports: Clear to Auscultation, Normal Respiratory Effort Cardiovascular: Reports: Regular Rate, Regular Rhythm GI/Abdominal Exam: Normal Bowel Sounds, Soft, Non-Tender Extremities: Normal Inspection, No Pedal Edema Skin: Reports: Warm, Dry Neurological: Reports: No New Focal Deficit
== END 2020-02-15 09:30 | disposition home or self-care (01) ==
LOC: CC.ED 13:36 → CC.MS 15:35 → UNDOADMOB 16:02
PROVIDERS: ADMIT Nurse Practitioner Family; ATTEND Family Medicine
DX: I25.10 Atherosclerotic heart disease of native coronary artery without angina pectoris (principal); R42 Dizziness and giddiness; R53.1 Weakness; K92.2 Gastrointestinal hemorrhage, unspecified; E78.5 Hyperlipidemia, unspecified; I10 Essential (primary) hypertension; N39.0 Urinary tract infection, site not specified; I48.21 Permanent atrial fibrillation; F17.210 Nicotine dependence, cigarettes, uncomplicated; Z95.1 Presence of aortocoronary bypass graft; Z79.82 Long term (current) use of aspirin; Z79.899 Other long term (current) drug therapy; Z88.1 Allergy status to other antibiotic agents; Z88.8 Allergy status to other drugs, medicaments and biological substances
CPT/HCPCS: 36415; 71046; 80048; 80053; 81001; 82550; 83615; 83690; 84484; 85025; 85610; 85730; 87086; 93005; 96372; 96374; 99285-25; A9270-GY; G0378; J0696; J1650

== ENCOUNTER 2021-10-14 09:22 | Inpatient (IN) | payer MEDICARE, BC ==
[2021-10-14 10:14] LABS: PTT,PARTIAL THROMBOPLSTIN TIME 30.5 SEC (23.2-32.3)
[2021-10-14 10:20] LABS: CHLORIDE,CL 104 mEq/L (98-106); SODIUM,NA 141 mEq/L (136-145)
[2021-10-14] MEDS ORDERED: Furosemide 40 MG/4 ML VIAL IVPUSH ONE (10:21)
[2021-10-14 10:35] LABS: CORONAVIRUS COVID-19 NAA NEGATIVE (NEGATIVE); RESPIRATORY SYNCYTIAL VIR NAA NEGATIVE (NEGATIVE)
[2021-10-14] MEDS ORDERED: Phytonadione 5 MG Tab PO ONE (12:00)
[2021-10-14] MEDS ORDERED: Sodium Chloride 0.9% 250 ML IV SCH (12:30)
--- NOTE | 2021-10-14 12:54 | EDM.PDOC ---
ED HPI GENERAL MEDICAL PROBLEM - General Chief Complaint: General Stated Complaint: LEGS WEAK Time Seen by Provider: 10/14/21 09:55 Source of Information: Reports: Patient, Family History Limitations: Reports: No Limitations - History of Present Illness INITIAL COMMENTS - FREE TEXT/NARRATIVE: Bertha is an 86 yo female who presents to the ED with multiple complaints, accompanied by her daugher. Patient states over the last couple of weeks she has been getting weaker and weaker. States she does get short of breath with exertion and has noticed her legs to start swelling as well. States she had been having black tarry like stools as well, but this has improved. Admits to history of gastric ulcers with bleeding in the past. States yesterday she did have a stomach ache but it is gone today. - Related Data Allergies Allergy/AdvReac Type Severity Reaction Status Date / Time amoxicillin trihydrate Allergy Cannot Verified 10/14/21 09:39 [From Augmentin] Remember potassium clavulanate Allergy Cannot Verified 10/14/21 09:39 [From Augmentin] Remember atorvastatin calcium AdvReac Muscle Verified 10/14/21 09:39 [From Lipitor] Aches pitavastatin calcium AdvReac Muscle Verified 10/14/21 09:39 [From Livalo] Aches rosuvastatin calcium AdvReac Muscle Verified 10/14/21 09:39 [From Crestor] Aches simvastatin [From Zocor] AdvReac Muscle Verified 10/14/21 09:39 Aches Home Meds: Home Meds Acetaminophen [Tylenol] 325 mg PO DAILY PRN 04/13/16 [History] Lisinopril [Prinivil] 2.5 mg PO DAILY 04/13/16 [History] Metoprolol Succinate [Toprol XL] 100 mg PO DAILY 04/13/16 [History] Acetaminophen/Diphenhydramine [Acetaminophen Pm Gelcap] 2 each PO BEDTIME 04/14/17 [History] Pravastatin [Pravachol] 1 tab PO DAILY 08/25/19 [History] Isosorbide Mononitrate [Imdur] 60 mg PO BEDTIME #30 tab.er 02/15/20 [Rx] Warfarin [Coumadin] 2.5 mg PO SUSA 06/05/21 [History] Warfarin [Coumadin] 5 mg PO MOTUWETHFR 06/05/21 [History] Furosemide [Lasix] 40 mg PO DAILY 10/14/21 [History] Pantoprazole [ProTONIX] 40 mg PO DAILY 10/14/21 [History] Past Medical History Cardiovascular History: Reports: Afib, Bypass, High Cholesterol, Hypertension, SOB on Exertion, Stents Respiratory History: Reports: COPD Gastrointestinal History: Reports: Chronic Constipation, GI Bleed, PUD Genitourinary History: Reports: None CARD MAKER History: Reports: Musculoskeletal History: Reports: Osteoporosis Endocrine/Metabolic History: Reports: Osteoporosis Hematologic History: Reports: Blood Transfusion(s) - Past Surgical History Cardiovascular Surgical History: Reports: Coronary Artery Bypass, Coronary Artery Stent GI Surgical History: Reports: None Female Surgical History: Reports: Cystectomy Musculoskeletal Surgical History: Reports: None Social & Family History - Family History Family Medical History: No Pertinent Family History - Tobacco Use Tobacco Use Status *Q: Current Every Day Tobacco User Years of Tobacco use: 70 Packs/Tins Daily: 1 - Caffeine Use Caffeine Use: Reports: Coffee - Alcohol Use Alcohol Use History: No ED ROS GENERAL - Review of Systems Review Of Systems: See Below Constitutional: Reports: Weakness, Fatigue, Decreased Appetite. Denies: Fever, Chills HEENT: Reports: No Symptoms Respiratory: Reports: Shortness of Breath. Denies: Wheezing, Cough Cardiovascular: Reports: Dyspnea on Exertion, Lightheadedness, Palpitations. Denies: Chest Pain GI/Abdominal: Reports: Abdominal Pain (resolved yesterday), Black Stool, Constipation. Denies: Diarrhea, Nausea, Vomiting : Reports: No Symptoms Musculoskeletal: Reports: No Symptoms Skin: Reports: No Symptoms Neurological: Reports: Dizziness. Denies: Headache Psychiatric: Reports: No Symptoms ED EXAM, GENERAL - Physical Exam Exam: See Below Exam Limited By: No Limitations General Appearance: Alert, No Apparent Distress Ears: Normal External Exam, Hearing Grossly Normal Nose: Normal Inspection, No Blood Throat/Mouth: Normal Inspection, Normal Lips, Normal Oropharynx, Normal Voice, No Airway Compromise Head: Atraumatic, Normocephalic Neck: Normal Inspection, Supple. No: Lymphadenopathy (L), Lymphadenopathy (R) Respiratory/Chest: No Respiratory Distress, Lungs Clear, Normal Breath Sounds, No Accessory Muscle Use Cardiovascular: Irregularly Irregular. No: No Edema Peripheral Pulses: 1+: Dorsalis Pedis (L), Dorsalis Pedis (R) GI/Abdominal: Normal Bowel Sounds Rectal (Female) Exam: Black Stool, Heme + Stool. No: Rectal Fissure Extremities: Normal Capillary Refill, Pedal Edema (trace bilateral) Neurological: Alert, Oriented, Normal Cognition, No Motor/Sensory Deficits Psychiatric: Normal Affect, Normal Mood Skin Exam: Warm, Dry, Intact Course - Vital Signs Last Recorded V/S: Last Vital Signs Temp 97.2 F 10/14/21 10:14 Pulse 105 H 10/14/21 10:14 Resp 18 10/14/21 10:14 BP 100/63 10/14/21 10:14 Pulse Ox 97 10/14/21 10:14 - Orders/Labs/Meds Orders: Active Orders 24 hr Category Date Time Status Chest 2V [CR] Stat Exams 10/14/21 09:43 Taken RED BLOOD CELLS LP [BBK] Stat Lab 10/14/21 10:21 Results TYPE AND SCREEN [BBK] Stat Lab 10/14/21 10:21 Results UA RFX RAFITA AND CULT IF INDIC [URIN] Routine Lab 10/14/21 09:51 Ordered Peripheral IV Insertion Adult [OM.PC] Urgent Oth 10/14/21 10:21 Ordered Transfuse Red Blood Cells [COMM] Routine Oth 10/14/21 10:21 Ordered Medication Orders Sodium Chloride (Normal Saline) 250 mls @ 125 mls/hr IV ASDIRECTED [facility] Pantoprazole Sodium (Pantoprazole 40 Mg Vial) 40 mg IVPUSH BID [facility] Labs: Laboratory Tests 10/14/21 10/14/21 10/14/21 Range/Units 09:59 09:59 09:59 WBC 9.2 (4.0-11.0) 10^3/uL RBC 2.42 L (4.00-5.50) x10^6/uL Hgb 6.5 L* (12.0-16.0) g/dL Hct 21.2 L (37.0-47.0) % MCV 87.6 (83.0-97.0) fL MCH 26.9 L (27.0-32.0) pg MCHC 30.7 L (32.0-36.0) g/dL RDW Coeff of Anne 17.0 H (11.0-15.0) % Plt Count 232 (150-400) 10^3/uL Immature Gran % (Auto) 0.3 (0.0-4.9) % Neut % (Auto) 74.5 H (41-71) % Lymph % (Auto) 13.3 L (24-44) % Bureau % (Auto) 9.5 (0-10) % Eos % (Auto) 2.0 (0-6) % Baso % (Auto) 0.4 (0-1) % Neut # (Auto) 6.82 (1.80-8.00) x10^3/uL Lymph # (Auto) 1.22 (0.60-5.00) 10^3/uL Bureau # (Auto) 0.87 (0.00-1.50) 10^3/uL Eos # (Auto) 0.18 (0.00-1.50) 10^3/uL Baso # (Auto) 0.04 (0.00-0.50) 10^3/uL Immature Gran # (Auto) 0.03 (0.00-0.49) 10^3/uL PT 23.7 H (9.7-12.3) SEC INR 2.29 H (0.92-1.18) APTT 30.5 (23.2-32.3) SEC Sodium 141 (136-145) mEq/L Potassium 3.6 (3.5-5.0) mEq/L Chloride 104 (98-106) mEq/L Carbon Dioxide 25 (21-32) mmol/L BUN 22 H (7-18) mg/dL Creatinine 1.2 H (0.6-1.0) mg/dL Est Cr Clr Drug Dosing TNP Estimated GFR (MDRD) 43 L (>=60) mL/min Glucose 108 H (75-99) mg/dL Calcium 8.7 (8.4-10.1) mg/dL Total Bilirubin 0.9 (0.0-1.0) mg/dL AST 16 (15-37) U/L ALT 9 L (12-78) U/L Alkaline Phosphatase 59 (46-116) U/L Lactate Dehydrogenase 194 H (100-190) U/L Creatine Kinase 75 (21-215) U/L Troponin I High Sens 84.4 H* (<=51) pg/mL NT-Pro-B Natriuret Pep 17622 H (0-1000) pg/mL Total Protein 6.5 (6.4-8.2) g/dL Albumin 3.1 L (3.4-5.0) g/dL Influenza Type A RNA (NEGATIVE) RSV RNA (INAAT) (NEGATIVE) Influenza Type B RNA (NEGATIVE) SARS-CoV-2 RNA (DANNY) (NEGATIVE) Blood Type Gel Antibody Screen Crossmatch 10/14/21 10/14/21 Range/Units 09:59 10:21 WBC (4.0-11.0) 10^3/uL RBC (4.00-5.50) x10^6/uL Hgb (12.0-16.0) g/dL Hct (37.0-47.0) % MCV (83.0-97.0) fL MCH (27.0-32.0) pg MCHC (32.0-36.0) g/dL RDW Coeff of Anne (11.0-15.0) % Plt Count (150-400) 10^3/uL Immature Gran % (Auto) (0.0-4.9) % Neut % (Auto) (41-71) % Lymph % (Auto) (24-44) % Bureau % (Auto) (0-10) % Eos % (Auto) (0-6) % Baso % (Auto) (0-1) % Neut # (Auto) (1.80-8.00) x10^3/uL Lymph # (Auto) (0.60-5.00) 10^3/uL Bureau # (Auto) (0.00-1.50) 10^3/uL Eos # (Auto) (0.00-1.50) 10^3/uL Baso # (Auto) (0.00-0.50) 10^3/uL Immature Gran # (Auto) (0.00-0.49) 10^3/uL PT (9.7-12.3) SEC INR (0.92-1.18) APTT (23.2-32.3) SEC Sodium (136-145) mEq/L Potassium (3.5-5.0) mEq/L Chloride (98-106) mEq/L Carbon Dioxide (21-32) mmol/L BUN (7-18) mg/dL Creatinine (0.6-1.0) mg/dL Est Cr Clr Drug Dosing Estimated GFR (MDRD) (>=60) mL/min Glucose (75-99) mg/dL Calcium (8.4-10.1) mg/dL Total Bilirubin (0.0-1.0) mg/dL AST (15-37) U/L ALT (12-78) U/L Alkaline Phosphatase (46-116) U/L Lactate Dehydrogenase (100-190) U/L Creatine Kinase (21-215) U/L Troponin I High Sens (<=51) pg/mL NT-Pro-B Natriuret Pep (0-1000) pg/mL Total Protein (6.4-8.2) g/dL Albumin (3.4-5.0) g/dL Influenza Type A RNA Negative (NEGATIVE) RSV RNA (INAAT) Negative (NEGATIVE) Influenza Type B RNA Negative (NEGATIVE) SARS-CoV-2 RNA (DANNY) Negative (NEGATIVE) Blood Type A POSITIVE Gel Antibody Screen Negative Crossmatch See Detail Meds: Medications Generic Name Dose Route Start Last Admin Trade Name Freq PRN Reason Stop Dose Admin Sodium Chloride 250 mls @ 125 mls/hr 10/14/21 12:30 Normal Saline IV ASDIRECTED DELIA Pantoprazole Sodium 40 mg 10/14/21 12:00 Pantoprazole 40 Mg Vial IVPUSH BID DELIA Discontinued Medications Generic Name Dose Route Start Last Admin Trade Name Freq PRN Reason Stop Dose Admin Furosemide 40 mg 10/14/21 10:21 Furosemide 40 Mg/4 Ml Vial IVPUSH 10/14/21 10:22 NOW ONE Phytonadione 5 mg 10/14/21 12:00 Phytonadione 5 Mg Tab PO 10/14/21 12:01 ONETIME ONE Departure - Departure Time of Disposition: 11:45 Disposition: Admitted As Inpatient 66 Clinical Impression: CHF, Congestive heart failure GI bleed Qualifiers: GI bleed type/associated pathology: unspecified gastrointestinal hemorrhage type Qualified Code(s): K92.2 - Gastrointestinal hemorrhage, unspecified - Discharge Information Sepsis Event Note (ED) - Evaluation Sepsis Screening Result: No Definite Risk - Focused Exam Vital Signs: Vital Signs Temp Pulse Resp BP Pulse Ox 10/14/21 10:14 97.2 F 105 H 18 100/63 97 - Problem List & Annotations (1) GI bleed SNOMED Code(s): 63142075 Code(s): K92.2 - GASTROINTESTINAL HEMORRHAGE, UNSPECIFIED Status: Acute Priority: High Current Visit: Yes Qualifiers: GI bleed type/associated pathology: gastric ulcer Qualified Code(s): K25.4 - Chronic or unspecified gastric ulcer with hemorrhage (2) Atrial fibrillation SNOMED Code(s): 21526226 Code(s): I48.91 - UNSPECIFIED ATRIAL FIBRILLATION Status: Acute Current Visit: No Qualifiers: Atrial fibrillation type: permanent Qualified Code(s): I48.21 - Permanent atrial fibrillation (3) CHF, Congestive heart failure SNOMED Code(s): 68001214 Code(s): I50.9 - HEART FAILURE, UNSPECIFIED Status: Acute Current Visit: Yes - My Orders Last 24 Hours: My Active Orders 10/14/21 09:43 Chest 2V [CR] Stat 10/14/21 09:51 UA RFX RAFITA AND CULT IF INDIC [URIN] Routine 10/14/21 10:21 RED BLOOD CELLS LP [BBK] Stat TYPE AND SCREEN [BBK] Stat Peripheral IV Insertion Adult [OM.PC] Urgent Transfuse Red Blood Cells [COMM] Routine - Assessment/Plan Admission H&P: Please use this note as an admission H&P Last 24 Hours: My Active Orders 10/14/21 09:43 Chest 2V [CR] Stat 10/14/21 09:51 UA RFX RAFITA AND CULT IF INDIC [URIN] Routine 10/14/21 10:21 RED BLOOD CELLS LP [BBK] Stat TYPE AND SCREEN [BBK] Stat Peripheral IV Insertion Adult [OM.PC] Urgent Transfuse Red Blood Cells [COMM] Routine Plan: Discussed guarded condition with Bertha and her daughter. Bertha declines transfer at this time but would like to remain a Code 1. She understands the risk of uncontrollable bleeding. Patient will be admitted under acute care. Will hold Coumadin and Vitamin K 5mg orally to be given. Will give 2 units of pRBC's. Discussed risks and benefits of transfusion which she has had in the past d/t same condition. No prior reactions. Consulted with Dr. العلي in regards to Bertha's condition and in agreement with admission with family being well aware of GI Bleed and concerns with ongoing bleeding. Patient again verbalized she wishes to not be transferred at this time.
[2021-10-14] MEDS: Pantoprazole 40 MG Vial IVPUSH SCH ×2 (12:59→19:59)
[2021-10-14] MEDS ORDERED: Acetaminophen 325 MG Tab PO PRN (13:04)
[2021-10-14] MEDS ORDERED: Docusate Sodium 100 MG Cap PO PRN (13:04)
[2021-10-14] MEDS ORDERED: Ondansetron 4 MG/2 ML SDV IV PRN (13:04)
[2021-10-14] MEDS ORDERED: Furosemide 40 MG/4 ML VIAL ONE (15:39)
[2021-10-14] MEDS ORDERED: diphenhydrAMINE 25 MG Cap PO SCH (20:00)
[2021-10-14] MEDS ORDERED: Acetaminophen 500 MG Tab PO SCH (20:00)
[2021-10-14] MEDS: cefTRIAXone 1 GM Vial IVPUSH SCH (20:03)
[2021-10-14] MEDS: Isosorbide Mononitrate 60 MG Tab.ER PO SCH (20:11)
[2021-10-15] MEDS: Pantoprazole 40 MG Vial IVPUSH SCH ×2 (08:00→19:33)
[2021-10-15] MEDS: Furosemide 40 MG/4 ML VIAL IVPUSH SCH (08:00)
[2021-10-15] MEDS ORDERED: Pravastatin 40 MG Tablet PO SCH (08:00)
[2021-10-15] MEDS: Metoprolol Succinate 100 MG Tab.ER PO SCH (08:01)
[2021-10-15] MEDS: Lisinopril 5 MG Tab PO SCH (08:01)
--- NOTE | 2021-10-15 08:50 | PCM.PN ---
- General Info Date of Service: 10/15/21 Admission Dx/Problem (Free Text): Upper GI Bleed UTI Subjective Update: Orpha is resting comfortably. States is feeling much better than yesterday. Sullivan s not had any dark stools since admission. Relates had a couple days of dark stools and seemed to have gotten better so wasn't overly concerned. Has been dealing with intermittent low back and abdominal pain that seem to correlate with each other. Did not feel it was related to losing blood. has been taking her Protonix. On Coumadin. has history of atrial fib as well as GI bleeds. Afebrile. Functional Status: Reports: Pain Controlled, Tolerating Diet, Ambulating - Review of Systems General: Reports: Weakness, Fatigue, Malaise. Denies: Fever HEENT: Reports: Rhinitis. Denies: Ear Pain, Headaches, Sinus Congestion Pulmonary: Reports: Shortness of Breath. Denies: Cough Cardiovascular: Denies: Chest Pain, Edema, Lightheadedness Gastrointestinal: Reports: Other (no stools since admission). Denies: Abdominal Pain, Nausea, Vomiting Genitourinary: Reports: Frequency. Denies: Dysuria Musculoskeletal: Reports: Back Pain Skin: Reports: No Symptoms Neurological: Reports: Weakness. Denies: Dizziness, Headache - Patient Data Vitals - Most Recent: Last Vital Signs Temp 96.7 F L 10/15/21 07:41 Pulse 98 10/15/21 08:01 Resp 16 10/15/21 07:41 BP 106/66 10/15/21 08:01 Pulse Ox 94 L 10/15/21 07:41 Weight - Most Recent: 129 lb 3.2 oz I&O - Last 24 Hours: Intake & Output 10/14/21 10/15/21 10/15/21 22:59 06:59 14:59 Intake Total 380 Balance 380 Lab Results Last 24 Hours: Laboratory Results - last 24 hr 10/14/21 10/14/21 10/14/21 Range/Units 09:59 09:59 09:59 WBC 9.2 (4.0-11.0) 10^3/uL RBC 2.42 L (4.00-5.50) x10^6/uL Hgb 6.5 L* (12.0-16.0) g/dL Hct 21.2 L (37.0-47.0) % MCV 87.6 (83.0-97.0) fL MCH 26.9 L (27.0-32.0) pg MCHC 30.7 L (32.0-36.0) g/dL RDW Coeff of Anne 17.0 H (11.0-15.0) % Plt Count 232 (150-400) 10^3/uL Immature Gran % (Auto) 0.3 (0.0-4.9) % Neut % (Auto) 74.5 H (41-71) % Lymph % (Auto) 13.3 L (24-44) % Cedar % (Auto) 9.5 (0-10) % Eos % (Auto) 2.0 (0-6) % Baso % (Auto) 0.4 (0-1) % Neut # (Auto) 6.82 (1.80-8.00) x10^3/uL Lymph # (Auto) 1.22 (0.60-5.00) 10^3/uL Cedar # (Auto) 0.87 (0.00-1.50) 10^3/uL Eos # (Auto) 0.18 (0.00-1.50) 10^3/uL Baso # (Auto) 0.04 (0.00-0.50) 10^3/uL Immature Gran # (Auto) 0.03 (0.00-0.49) 10^3/uL PT 23.7 H (9.7-12.3) SEC INR 2.29 H (0.92-1.18) APTT 30.5 (23.2-32.3) SEC Sodium 141 (136-145) mEq/L Potassium 3.6 (3.5-5.0) mEq/L Chloride 104 (98-106) mEq/L Carbon Dioxide 25 (21-32) mmol/L BUN 22 H (7-18) mg/dL Creatinine 1.2 H (0.6-1.0) mg/dL Est Cr Clr Drug Dosing TNP Estimated GFR (MDRD) 43 L (>=60) mL/min Glucose 108 H (75-99) mg/dL Calcium 8.7 (8.4-10.1) mg/dL Total Bilirubin 0.9 (0.0-1.0) mg/dL AST 16 (15-37) U/L ALT 9 L (12-78) U/L Alkaline Phosphatase 59 (46-116) U/L Lactate Dehydrogenase 194 H (100-190) U/L Creatine Kinase 75 (21-215) U/L Troponin I High Sens 84.4 H* (<=51) pg/mL NT-Pro-B Natriuret Pep 88924 H (0-1000) pg/mL Total Protein 6.5 (6.4-8.2) g/dL Albumin 3.1 L (3.4-5.0) g/dL Urine Color (YELLOW) Urine Appearance (CLEAR) Urine pH (4.5-8.0) Ur Specific [place] (1.003-1.020) Urine Protein (NEGATIVE) mg/dL Urine Glucose (UA) (NEGATIVE) mg/dL Urine Ketones (NEGATIVE) mg/dL Urine Occult Blood (NEGATIVE) Urine Nitrite (NEGATIVE) Urine Bilirubin (NEGATIVE) Urine Urobilinogen (0.2-1.0) EU/dL Ur Leukocyte Esterase (NEGATIVE) Urine RBC (0-5) /HPF Urine WBC (0-5) /HPF Ur Epithelial Cells (NOT SEEN) /HPF Urine Bacteria (NOT SEEN) /HPF Urinalysis Comment Influenza Type A RNA (NEGATIVE) RSV RNA (INAAT) (NEGATIVE) Influenza Type B RNA (NEGATIVE) SARS-CoV-2 RNA (DANNY) (NEGATIVE) Blood Type Gel Antibody Screen Crossmatch 10/14/21 10/14/21 10/14/21 Range/Units 09:59 10:21 14:05 WBC (4.0-11.0) 10^3/uL RBC (4.00-5.50) x10^6/uL Hgb (12.0-16.0) g/dL Hct (37.0-47.0) % MCV (83.0-97.0) fL MCH (27.0-32.0) pg MCHC (32.0-36.0) g/dL RDW Coeff of Anne (11.0-15.0) % Plt Count (150-400) 10^3/uL Immature Gran % (Auto) (0.0-4.9) % Neut % (Auto) (41-71) % Lymph % (Auto) (24-44) % Cedar % (Auto) (0-10) % Eos % (Auto) (0-6) % Baso % (Auto) (0-1) % Neut # (Auto) (1.80-8.00) x10^3/uL Lymph # (Auto) (0.60-5.00) 10^3/uL Cedar # (Auto) (0.00-1.50) 10^3/uL Eos # (Auto) (0.00-1.50) 10^3/uL Baso # (Auto) (0.00-0.50) 10^3/uL Immature Gran # (Auto) (0.00-0.49) 10^3/uL PT (9.7-12.3) SEC INR (0.92-1.18) APTT (23.2-32.3) SEC Sodium (136-145) mEq/L Potassium (3.5-5.0) mEq/L Chloride (98-106) mEq/L Carbon Dioxide (21-32) mmol/L BUN (7-18) mg/dL Creatinine (0.6-1.0) mg/dL Est Cr Clr Drug Dosing Estimated GFR (MDRD) (>=60) mL/min Glucose (75-99) mg/dL Calcium (8.4-10.1) mg/dL Total Bilirubin (0.0-1.0) mg/dL AST (15-37) U/L ALT (12-78) U/L Alkaline Phosphatase (46-116) U/L Lactate Dehydrogenase (100-190) U/L Creatine Kinase (21-215) U/L Troponin I High Sens 76.1 H* (<=51) pg/mL NT-Pro-B Natriuret Pep (0-1000) pg/mL Total Protein (6.4-8.2) g/dL Albumin (3.4-5.0) g/dL Urine Color (YELLOW) Urine Appearance (CLEAR) Urine pH (4.5-8.0) Ur Specific [place] (1.003-1.020) Urine Protein (NEGATIVE) mg/dL Urine Glucose (UA) (NEGATIVE) mg/dL Urine Ketones (NEGATIVE) mg/dL Urine Occult Blood (NEGATIVE) Urine Nitrite (NEGATIVE) Urine Bilirubin (NEGATIVE) Urine Urobilinogen (0.2-1.0) EU/dL Ur Leukocyte Esterase (NEGATIVE) Urine RBC (0-5) /HPF Urine WBC (0-5) /HPF Ur Epithelial Cells (NOT SEEN) /HPF Urine Bacteria (NOT SEEN) /HPF Urinalysis Comment Influenza Type A RNA Negative (NEGATIVE) RSV RNA (INAAT) Negative (NEGATIVE) Influenza Type B RNA Negative (NEGATIVE) SARS-CoV-2 RNA (DANNY) Negative (NEGATIVE) Blood Type A POSITIVE Gel Antibody Screen Negative Crossmatch See Detail 10/14/21 10/15/21 10/15/21 Range/Units 14:52 05:11 05:11 WBC 8.4 (4.0-11.0) 10^3/uL RBC 3.34 L (4.00-5.50) x10^6/uL Hgb 9.2 L (12.0-16.0) g/dL Hct 28.8 L (37.0-47.0) % MCV 86.2 (83.0-97.0) fL MCH 27.5 (27.0-32.0) pg MCHC 31.9 L (32.0-36.0) g/dL RDW Coeff of Anne 15.7 H (11.0-15.0) % Plt Count 236 (150-400) 10^3/uL Immature Gran % (Auto) 0.2 (0.0-4.9) % Neut % (Auto) 73.6 H (41-71) % Lymph % (Auto) 11.5 L (24-44) % Cedar % (Auto) 10.2 H (0-10) % Eos % (Auto) 4.0 (0-6) % Baso % (Auto) 0.5 (0-1) % Neut # (Auto) 6.17 (1.80-8.00) x10^3/uL Lymph # (Auto) 0.97 (0.60-5.00) 10^3/uL Cedar # (Auto) 0.86 (0.00-1.50) 10^3/uL Eos # (Auto) 0.34 (0.00-1.50) 10^3/uL Baso # (Auto) 0.04 (0.00-0.50) 10^3/uL Immature Gran # (Auto) 0.02 (0.00-0.49) 10^3/uL PT 17.2 H (9.7-12.3) SEC INR 1.63 H (0.92-1.18) APTT (23.2-32.3) SEC Sodium (136-145) mEq/L Potassium (3.5-5.0) mEq/L Chloride (98-106) mEq/L Carbon Dioxide (21-32) mmol/L BUN (7-18) mg/dL Creatinine (0.6-1.0) mg/dL Est Cr Clr Drug Dosing Estimated GFR (MDRD) (>=60) mL/min Glucose (75-99) mg/dL Calcium (8.4-10.1) mg/dL Total Bilirubin (0.0-1.0) mg/dL AST (15-37) U/L ALT (12-78) U/L Alkaline Phosphatase (46-116) U/L Lactate Dehydrogenase (100-190) U/L Creatine Kinase (21-215) U/L Troponin I High Sens (<=51) pg/mL NT-Pro-B Natriuret Pep (0-1000) pg/mL Total Protein (6.4-8.2) g/dL Albumin (3.4-5.0) g/dL Urine Color Yellow (YELLOW) Urine Appearance Slightly cloudy (CLEAR) Urine pH 5.5 (4.5-8.0) Ur Specific [place] 1.025 H (1.003-1.020) Urine Protein 30 H (NEGATIVE) mg/dL Urine Glucose (UA) Negative (NEGATIVE) mg/dL Urine Ketones Trace H (NEGATIVE) mg/dL Urine Occult Blood Trace-intact H (NEGATIVE) Urine Nitrite Negative (NEGATIVE) Urine Bilirubin Small H (NEGATIVE) Urine Urobilinogen 4.0 H (0.2-1.0) EU/dL Ur Leukocyte Esterase Moderate H (NEGATIVE) Urine RBC 0-5 (0-5) /HPF Urine WBC >100 H (0-5) /HPF Ur Epithelial Cells Few H (NOT SEEN) /HPF Urine Bacteria Moderate H (NOT SEEN) /HPF Urinalysis Comment Influenza Type A RNA (NEGATIVE) RSV RNA (INAAT) (NEGATIVE) Influenza Type B RNA (NEGATIVE) SARS-CoV-2 RNA (DANNY) (NEGATIVE) Blood Type Gel Antibody Screen Crossmatch 10/15/21 Range/Units 05:11 WBC (4.0-11.0) 10^3/uL RBC (4.00-5.50) x10^6/uL Hgb (12.0-16.0) g/dL Hct (37.0-47.0) % MCV (83.0-97.0) fL MCH (27.0-32.0) pg MCHC (32.0-36.0) g/dL RDW Coeff of Anne (11.0-15.0) % Plt Count (150-400) 10^3/uL Immature Gran % (Auto) (0.0-4.9) % Neut % (Auto) (41-71) % Lymph % (Auto) (24-44) % Cedar % (Auto) (0-10) % Eos % (Auto) (0-6) % Baso % (Auto) (0-1) % Neut # (Auto) (1.80-8.00) x10^3/uL Lymph # (Auto) (0.60-5.00) 10^3/uL Cedar # (Auto) (0.00-1.50) 10^3/uL Eos # (Auto) (0.00-1.50) 10^3/uL Baso # (Auto) (0.00-0.50) 10^3/uL Immature Gran # (Auto) (0.00-0.49) 10^3/uL PT (9.7-12.3) SEC INR (0.92-1.18) APTT (23.2-32.3) SEC Sodium 142 (136-145) mEq/L Potassium 3.2 L (3.5-5.0) mEq/L Chloride 107 H (98-106) mEq/L Carbon Dioxide 26 (21-32) mmol/L BUN 18 (7-18) mg/dL Creatinine 1.3 H (0.6-1.0) mg/dL Est Cr Clr Drug Dosing 25.70 Estimated GFR (MDRD) 39 L (>=60) mL/min Glucose 101 H (75-99) mg/dL Calcium 8.4 (8.4-10.1) mg/dL Total Bilirubin 1.2 H (0.0-1.0) mg/dL AST 15 (15-37) U/L ALT 8 L (12-78) U/L Alkaline Phosphatase 57 (46-116) U/L Lactate Dehydrogenase (100-190) U/L Creatine Kinase (21-215) U/L Troponin I High Sens 95.9 H* (<=51) pg/mL NT-Pro-B Natriuret Pep (0-1000) pg/mL Total Protein 5.9 L (6.4-8.2) g/dL Albumin 2.7 L (3.4-5.0) g/dL Urine Color (YELLOW) Urine Appearance (CLEAR) Urine pH (4.5-8.0) Ur Specific [place] (1.003-1.020) Urine Protein (NEGATIVE) mg/dL Urine Glucose (UA) (NEGATIVE) mg/dL Urine Ketones (NEGATIVE) mg/dL Urine Occult Blood (NEGATIVE) Urine Nitrite (NEGATIVE) Urine Bilirubin (NEGATIVE) Urine Urobilinogen (0.2-1.0) EU/dL Ur Leukocyte Esterase (NEGATIVE) Urine RBC (0-5) /HPF Urine WBC (0-5) /HPF Ur Epithelial Cells (NOT SEEN) /HPF Urine Bacteria (NOT SEEN) /HPF Urinalysis Comment Influenza Type A RNA (NEGATIVE) RSV RNA (INAAT) (NEGATIVE) Influenza Type B RNA (NEGATIVE) SARS-CoV-2 RNA (DANNY) (NEGATIVE) Blood Type Gel Antibody Screen Crossmatch Med Orders - Current: Current Medications Acetaminophen (Acetaminophen 325 Mg Tab) 650 mg PO Q4H PRN PRN Reason: Pain (Mild 1-3)/fever Ceftriaxone Sodium (Ceftriaxone 1 Gm Vial) 1 gm IVPUSH Q24H [facility] Last Admin: 10/14/21 20:03 Dose: 1 gm Documented by: Docusate Sodium (Docusate Sodium 100 Mg Cap) 100 mg PO BID PRN PRN Reason: Constipation Furosemide (Furosemide 40 Mg/4 Ml Vial) 40 mg IVPUSH Q24H [facility] Last Admin: 10/15/21 08:00 Dose: 40 mg Documented by: Isosorbide Mononitrate (Isosorbide Mononitrate 60 Mg Tab.Er) 60 mg PO BEDTIME [facility] Last Admin: 10/14/21 20:11 Dose: 60 mg Documented by: Lisinopril (Lisinopril 5 Mg Tab) 2.5 mg PO DAILY [facility] Last Admin: 10/15/21 08:01 Dose: 2.5 mg Documented by: Metoprolol Succinate (Metoprolol Succinate 100 Mg Tab.Er) 100 mg PO DAILY [facility] Last Admin: 10/15/21 08:01 Dose: 100 mg Documented by: Pravastatin 40 Mg (Tablet) 1 tab PO DAILY [facility] Ondansetron HCl (Ondansetron 4 Mg/2 Ml Sdv) 4 mg IV Q4H PRN PRN Reason: Nausea/Vomiting Pantoprazole Sodium (Pantoprazole 40 Mg Vial) 40 mg IVPUSH BID [facility] Last Admin: 10/15/21 08:00 Dose: 40 mg Documented by: Discontinued Medications Furosemide (Furosemide 40 Mg/4 Ml Vial) 40 mg IVPUSH NOW ONE Stop: 10/14/21 10:22 Last Admin: 10/14/21 15:35 Dose: 40 mg Documented by: Furosemide (Furosemide 40 Mg/4 Ml Vial) Confirm Administered Dose 40 mg .ROUTE .STK-MED ONE Stop: 10/14/21 15:40 Last Admin: 10/14/21 15:35 Dose: Not Given Documented by: Sodium Chloride (Normal Saline) 250 mls @ 125 mls/hr IV ASDIRECTED [facility] Stop: 10/14/21 19:09 Last Admin: 10/14/21 13:00 Dose: 125 mls/hr Documented by: Phytonadione (Phytonadione 5 Mg Tab) 5 mg PO ONETIME ONE Stop: 10/14/21 12:01 Last Admin: 10/14/21 12:59 Dose: 5 mg Documented by: - Exam General: Alert, Oriented, Cooperative HEENT: Mucous Membr. Moist/[place] Neck: Supple Lungs: Clear to Auscultation, Normal Respiratory Effort Cardiovascular: Irregular Rhythm, Murmurs GI/Abdominal Exam: Normal Bowel Sounds, Soft, Non-Tender Extremities: Normal Inspection, No Pedal Edema Skin: Warm, Dry Neurological: No New Focal Deficit #1 Interpretation EKG Date: 10/15/21 Rhythm: A-Fib P-Wave: Absent QRS: Normal ST-T: Depressed QT: Prolonged Comparison: No Change - Patient Data Lab Results Last 24 hrs: Laboratory Results - last 24 hr 10/14/21 10/14/21 10/14/21 Range/Units 09:59 09:59 09:59 WBC 9.2 (4.0-11.0) 10^3/uL RBC 2.42 L (4.00-5.50) x10^6/uL Hgb 6.5 L* (12.0-16.0) g/dL Hct 21.2 L (37.0-47.0) % MCV 87.6 (83.0-97.0) fL MCH 26.9 L (27.0-32.0) pg MCHC 30.7 L (32.0-36.0) g/dL RDW Coeff of Anne 17.0 H (11.0-15.0) % Plt Count 232 (150-400) 10^3/uL Immature Gran % (Auto) 0.3 (0.0-4.9) % Neut % (Auto) 74.5 H (41-71) % Lymph % (Auto) 13.3 L (24-44) % [place]edar % (Auto) 9.5 (0-10) % Eos % (Auto) 2.0 (0-6) % Baso % (Auto) 0.4 (0-1) % Neut # (Auto) 6.82 (1.80-8.00) x10^3/uL Lymph # (Auto) 1.22 (0.60-5.00) 10^3/uL Cedar # (Auto) 0.87 (0.00-1.50) 10^3/uL Eos # (Auto) 0.18 (0.00-1.50) 10^3/uL Baso # (Auto) 0.04 (0.00-0.50) 10^3/uL Immature Gran # (Auto) 0.03 (0.00-0.49) 10^3/uL PT 23.7 H (9.7-12.3) SEC INR 2.29 H (0.92-1.18) APTT 30.5 (23.2-32.3) SEC Sodium 141 (136-145) mEq/L Potassium 3.6 (3.5-5.0) mEq/L Chloride 104 (98-106) mEq/L Carbon Dioxide 25 (21-32) mmol/L BUN 22 H (7-18) mg/dL Creatinine 1.2 H (0.6-1.0) mg/dL Est Cr Clr Drug Dosing TNP Estimated GFR (MDRD) 43 L (>=60) mL/min Glucose 108 H (75-99) mg/dL Calcium 8.7 (8.4-10.1) mg/dL Total Bilirubin 0.9 (0.0-1.0) mg/dL AST 16 (15-37) U/L ALT 9 L (12-78) U/L Alkaline Phosphatase 59 (46-116) U/L Lactate Dehydrogenase 194 H (100-190) U/L Creatine Kinase 75 (21-215) U/L Troponin I High Sens 84.4 H* (<=51) pg/mL NT-Pro-B Natriuret Pep 15325 H (0-1000) pg/mL Total Protein 6.5 (6.4-8.2) g/dL Albumin 3.1 L (3.4-5.0) g/dL Urine Color (YELLOW) Urine Appearance (CLEAR) Urine pH (4.5-8.0) Ur Specific [place] (1.003-1.020) Urine Protein (NEGATIVE) mg/dL Urine Glucose (UA) (NEGATIVE) mg/dL Urine Ketones (NEGATIVE) mg/dL Urine Occult Blood (NEGATIVE) Urine Nitrite (NEGATIVE) Urine Bilirubin (NEGATIVE) Urine Urobilinogen (0.2-1.0) EU/dL Ur Leukocyte Esterase (NEGATIVE) Urine RBC (0-5) /HPF Urine WBC (0-5) /HPF Ur Epithelial Cells (NOT SEEN) /HPF Urine Bacteria (NOT SEEN) /HPF Urinalysis Comment Influenza Type A RNA (NEGATIVE) RSV RNA (INAAT) (NEGATIVE) Influenza Type B RNA (NEGATIVE) SARS-CoV-2 RNA (DANNY) (NEGATIVE) Blood Type Gel Antibody Screen Crossmatch 10/14/21 10/14/21 10/14/21 Range/Units 09:59 10:21 14:05 WBC (4.0-11.0) 10^3/uL RBC (4.00-5.50) x10^6/uL Hgb (12.0-16.0) g/dL Hct (37.0-47.0) % MCV (83.0-97.0) fL MCH (27.0-32.0) pg MCHC (32.0-36.0) g/dL RDW Coeff of Anne (11.0-15.0) % Plt Count (150-400) 10^3/uL Immature Gran % (Auto) (0.0-4.9) % Neut % (Auto) (41-71) % Lymph % (Auto) (24-44) % [place] % (Auto) (0-10) % Eos % (Auto) (0-6) % Baso % (Auto) (0-1) % Neut # (Auto) (1.80-8.00) x10^3/uL Lymph # (Auto) (0.60-5.00) 10^3/uL [place]edar # (Auto) (0.00-1.50) 10^3/uL Eos # (Auto) (0.00-1.50) 10^3/uL Baso # (Auto) (0.00-0.50) 10^3/uL Immature Gran # (Auto) (0.00-0.49) 10^3/uL PT (9.7-12.3) SEC INR (0.92-1.18) APTT (23.2-32.3) SEC Sodium (136-145) mEq/L Potassium (3.5-5.0) mEq/L Chloride (98-106) mEq/L Carbon Dioxide (21-32) mmol/L BUN (7-18) mg/dL Creatinine (0.6-1.0) mg/dL Est Cr Clr Drug Dosing Estimated GFR (MDRD) (>=60) mL/min Glucose (75-99) mg/dL Calcium (8.4-10.1) mg/dL Total Bilirubin (0.0-1.0) mg/dL AST (15-37) U/L ALT (12-78) U/L Alkaline Phosphatase (46-116) U/L Lactate Dehydrogenase (100-190) U/L Creatine Kinase (21-215) U/L Troponin I High Sens 76.1 H* (<=51) pg/mL NT-Pro-B Natriuret Pep (0-1000) pg/mL Total Protein (6.4-8.2) g/dL Albumin (3.4-5.0) g/dL Urine Color (YELLOW) Urine Appearance (CLEAR) Urine pH (4.5-8.0) Ur Specific [place] (1.003-1.020) Urine Protein (NEGATIVE) mg/dL Urine Glucose (UA) (NEGATIVE) mg/dL Urine Ketones (NEGATIVE) mg/dL Urine Occult Blood (NEGATIVE) Urine Nitrite (NEGATIVE) Urine Bilirubin (NEGATIVE) Urine Urobilinogen (0.2-1.0) EU/dL Ur Leukocyte Esterase (NEGATIVE) Urine RBC (0-5) /HPF Urine WBC (0-5) /HPF Ur Epithelial Cells (NOT SEEN) /HPF Urine Bacteria (NOT SEEN) /HPF Urinalysis Comment Influenza Type A RNA Negative (NEGATIVE) RSV RNA (INAAT) Negative (NEGATIVE) Influenza Type B RNA Negative (NEGATIVE) SARS-CoV-2 RNA (DANNY) Negative (NEGATIVE) Blood Type A POSITIVE Gel Antibody Screen Negative Crossmatch See Detail 10/14/21 10/15/21 10/15/21 Range/Units 14:52 05:11 05:11 WBC 8.4 (4.0-11.0) 10^3/uL RBC 3.34 L (4.00-5.50) x10^6/uL Hgb 9.2 L (12.0-16.0) g/dL Hct 28.8 L (37.0-47.0) % MCV 86.2 (83.0-97.0) fL MCH 27.5 (27.0-32.0) pg MCHC 31.9 L (32.0-36.0) g/dL RDW Coeff of Anne 15.7 H (11.0-15.0) % Plt Count 236 (150-400) 10^3/uL Immature Gran % (Auto) 0.2 (0.0-4.9) % Neut % (Auto) 73.6 H (41-71) % Lymph % (Auto) 11.5 L (24-44) % [place] % (Auto) 10.2 H (0-10) % Eos % (Auto) 4.0 (0-6) % Baso % (Auto) 0.5 (0-1) % Neut # (Auto) 6.17 (1.80-8.00) x10^3/uL Lymph # (Auto) 0.97 (0.60-5.00) 10^3/uL [place] # (Auto) 0.86 (0.00-1.50) 10^3/uL Eos # (Auto) 0.34 (0.00-1.50) 10^3/uL Baso # (Auto) 0.04 (0.00-0.50) 10^3/uL Immature Gran # (Auto) 0.02 (0.00-0.49) 10^3/uL PT 17.2 H (9.7-12.3) SEC INR 1.63 H (0.92-1.18) APTT (23.2-32.3) SEC Sodium (136-145) mEq/L Potassium (3.5-5.0) mEq/L Chloride (98-106) mEq/L Carbon Dioxide (21-32) mmol/L BUN (7-18) mg/dL Creatinine (0.6-1.0) mg/dL Est Cr Clr Drug Dosing Estimated GFR (MDRD) (>=60) mL/min Glucose (75-99) mg/dL Calcium (8.4-10.1) mg/dL Total Bilirubin (0.0-1.0) mg/dL AST (15-37) U/L ALT (12-78) U/L Alkaline Phosphatase (46-116) U/L Lactate Dehydrogenase (100-190) U/L Creatine Kinase (21-215) U/L Troponin I High Sens (<=51) pg/mL NT-Pro-B Natriuret Pep (0-1000) pg/mL Total Protein (6.4-8.2) g/dL Albumin (3.4-5.0) g/dL Urine Color Yellow (YELLOW) Urine Appearance Slightly cloudy (CLEAR) Urine pH 5.5 (4.5-8.0) Ur Specific [place] 1.025 H (1.003-1.020) Urine Protein 30 H (NEGATIVE) mg/dL Urine Glucose (UA) Negative (NEGATIVE) mg/dL Urine Ketones Trace H (NEGATIVE) mg/dL Urine Occult Blood Trace-intact H (NEGATIVE) Urine Nitrite Negative (NEGATIVE) Urine Bilirubin Small H (NEGATIVE) Urine Urobilinogen 4.0 H (0.2-1.0) EU/dL Ur Leukocyte Esterase Moderate H (NEGATIVE) Urine RBC 0-5 (0-5) /HPF Urine WBC >100 H (0-5) /HPF Ur Epithelial Cells Few H (NOT SEEN) /HPF Urine Bacteria Moderate H (NOT SEEN) /HPF Urinalysis Comment Influenza Type A RNA (NEGATIVE) RSV RNA (INAAT) (NEGATIVE) Influenza Type B RNA (NEGATIVE) SARS-CoV-2 RNA (DANNY) (NEGATIVE) Blood Type Gel Antibody Screen Crossmatch 10/15/21 Range/Units 05:11 WBC (4.0-11.0) 10^3/uL RBC (4.00-5.50) x10^6/uL Hgb (12.0-16.0) g/dL Hct (37.0-47.0) % MCV (83.0-97.0) fL MCH (27.0-32.0) pg MCHC (32.0-36.0) g/dL RDW Coeff of Anne (11.0-15.0) % Plt Count (150-400) 10^3/uL Immature Gran % (Auto) (0.0-4.9) % Neut % (Auto) (41-71) % Lymph % (Auto) (24-44) % Cedar % (Auto) (0-10) % Eos % (Auto) (0-6) % Baso % (Auto) (0-1) % Neut # (Auto) (1.80-8.00) x10^3/uL Lymph # (Auto) (0.60-5.00) 10^3/uL Cedar # (Auto) (0.00-1.50) 10^3/uL Eos # (Auto) (0.00-1.50) 10^3/uL Baso # (Auto) (0.00-0.50) 10^3/uL Immature Gran # (Auto) (0.00-0.49) 10^3/uL PT (9.7-12.3) SEC INR (0.92-1.18) APTT (23.2-32.3) SEC Sodium 142 (136-145) mEq/L Potassium 3.2 L (3.5-5.0) mEq/L Chloride 107 H (98-106) mEq/L Carbon Dioxide 26 (21-32) mmol/L BUN 18 (7-18) mg/dL Creatinine 1.3 H (0.6-1.0) mg/dL Est Cr Clr Drug Dosing 25.70 Estimated GFR (MDRD) 39 L (>=60) mL/min Glucose 101 H (75-99) mg/dL Calcium 8.4 (8.4-10.1) mg/dL Total Bilirubin 1.2 H (0.0-1.0) mg/dL AST 15 (15-37) U/L ALT 8 L (12-78) U/L Alkaline Phosphatase 57 (46-116) U/L Lactate Dehydrogenase (100-190) U/L Creatine Kinase (21-215) U/L Troponin I High Sens 95.9 H* (<=51) pg/mL NT-Pro-B Natriuret Pep (0-1000) pg/mL Total Protein 5.9 L (6.4-8.2) g/dL Albumin 2.7 L (3.4-5.0) g/dL Urine Color (YELLOW) Urine Appearance (CLEAR) Urine pH (4.5-8.0) Ur Specific [place] (1.003-1.020) Urine Protein (NEGATIVE) mg/dL Urine Glucose (UA) (NEGATIVE) mg/dL Urine Ketones (NEGATIVE) mg/dL Urine Occult Blood (NEGATIVE) Urine Nitrite (NEGATIVE) Urine Bilirubin (NEGATIVE) Urine Urobilinogen (0.2-1.0) EU/dL Ur Leukocyte Esterase (NEGATIVE) Urine RBC (0-5) /HPF Urine WBC (0-5) /HPF Ur Epithelial Cells (NOT SEEN) /HPF Urine Bacteria (NOT SEEN) /HPF Urinalysis Comment Influenza Type A RNA (NEGATIVE) RSV RNA (INAAT) (NEGATIVE) Influenza Type B RNA (NEGATIVE) SARS-CoV-2 RNA (DANNY) (NEGATIVE) Blood Type Gel Antibody Screen Crossmatch Result Diagrams: 10/15/21 05:11 10/15/21 05:11 Sepsis Event Note - Evaluation Sepsis Screening Result: No Definite Risk - Focused Exam Vital Signs: Vital Signs Temp Pulse Pulse Resp BP BP Pulse Ox 10/15/21 08:01 98 106/66 10/15/21 07:41 96.7 F L 98 16 106/66 94 L 10/15/21 04:00 96.7 F L 101 H 16 107/60 93 L 10/15/21 00:00 96.9 F 90 16 115/62 97 - Problem List & Annotations (1) CHF, Congestive heart failure SNOMED Code(s): 99903928 Code(s): I50.9 - HEART FAILURE, UNSPECIFIED Status: Acute Priority: High Current Visit: Yes (2) GI bleed SNOMED Code(s): 39962033 Code(s): K92.2 - GASTROINTESTINAL HEMORRHAGE, UNSPECIFIED Status: Acute Priority: High Current Visit: Yes Qualifiers: GI bleed type/associated pathology: gastric ulcer Qualified Code(s): K25.4 - Chronic or unspecified gastric ulcer with hemorrhage (3) Atrial fibrillation SNOMED Code(s): 65816432 Code(s): I48.91 - UNSPECIFIED ATRIAL FIBRILLATION Status: Acute Priority: High Current Visit: Yes Qualifiers: Atrial fibrillation type: permanent Qualified Code(s): I48.21 - Permanent atrial fibrillation (4) UTI (urinary tract infection) SNOMED Code(s): 26955352 Code(s): N39.0 - URINARY TRACT INFECTION, SITE NOT SPECIFIED Status: Acute Priority: High Current Visit: Yes Qualifiers: Urinary tract infection type: acute cystitis Hematuria presence: with hematuria Qualified Code(s): N30.01 - Acute cystitis with hematuria - Problem List Review Problem List Initiated/Reviewed/Updated: Yes - My Orders Last 24 Hours: My Active Orders 10/16/21 08:00 COMPREHENSIVE METABOLIC PN,CMP [CHEM] DAILY 10/17/21 08:00 COMPREHENSIVE METABOLIC PN,CMP [CHEM] DAILY - Assessment Assessment:: 1. Upper GI Bleed 2. Acute on Chronic systolic CHF 3. UTI 4. Atrial fib - Plan Plan:: Discussed lab results with Dr. العلي in regards to her troponin increasing. EKG unchanged from July, likely related to CHF. Patient asymptomatic. Blood pressure is stable. Hemoglobin is increased to 9.2 this am. INR is down to 1.63. coumadin on hold. Will continue with IV Rocephin. Occult screen stools. Repeat labs. Discuss possible EGD in am.
[2021-10-15] MEDS: Isosorbide Mononitrate 60 MG Tab.ER PO SCH (19:33)
[2021-10-15] MEDS: cefTRIAXone 1 GM Vial IVPUSH SCH (19:35)
[2021-10-16] MEDS ORDERED: Lactated Ringers 1,000 ML IV SCH (09:00)
[2021-10-16] MEDS: Furosemide 40 MG/4 ML VIAL IVPUSH SCH (10:35)
[2021-10-16] MEDS ORDERED: Bisacodyl 5 MG Tab PO ONE ×2 (10:41→20:00)
[2021-10-16] MEDS: Lisinopril 5 MG Tab PO SCH (11:02)
[2021-10-16] MEDS: Pantoprazole 40 MG Vial IVPUSH SCH ×2 (11:03→19:40)
--- NOTE | 2021-10-16 11:08 | PN ---
DATE: 10/16/2021 S: Bertha was admitted Julita night with hemoglobin of 6.5. She is on Coumadin and was having melenic stools. She was given 2 units of blood. Her hemoglobin yesterday was 9.2. I am yet to see one for today. Coumadin was held. She was given vitamin K. Her INR was down yesterday. Her renal functions look fine, but she does have a slightly low potassium. Troponin was slightly elevated yesterday as well. I do not see a repeat in that regard. Her vitals have been fine. She has not been hypotensive. Dr. Morales was present today and did an EGD on her failed to find any bleeding sites in her stomach. O: GENERAL: She is pleasant and cooperative, still groggy from her sedation. NECK: Neck veins are flat. LUNGS: Lung sounds are clear. CARDIAC: Tones are irregular, but controlled. ABDOMEN: Soft and appears nontender. No peripheral edema seen. ASSESSMENT: 1. GASTROINTESTINAL BLEED. 2. CHRONIC ANTICOAGULATION SECONDARY TO COUMADIN. 3. CHRONIC ATRIAL FIBRILLATION. 4. HYPERTENSION. 5. HISTORY OF CONGESTIVE HEART FAILURE. 6. HYPOKALEMIA. P: We will get a repeat CBC today as we do not have a followup hemoglobin on her today. Get a magnesium level as her potassium is low. The patient had a slightly elevated troponin yesterday and we will follow that up, although I suspect this is nonischemic. The patient will be prepped today for colonoscopy tomorrow as we failed to find a bleeding site at this time. JOSEFA/MYNOR /[id number]
[2021-10-16] MEDS: Metoprolol Succinate 100 MG Tab.ER PO SCH (12:51)
[2021-10-16] MEDS: Potassium Chloride 10 MEQ Tab.ER PO SCH (16:52)
[2021-10-16] MEDS ORDERED: Polyethylene Glycol 3350 Powder 238 GM Bot PO SCH (18:00)
[2021-10-16] MEDS: cefTRIAXone 1 GM Vial IVPUSH SCH (19:44)
[2021-10-16] MEDS: Isosorbide Mononitrate 60 MG Tab.ER PO SCH (19:47)
[2021-10-17] MEDS ORDERED: Lactated Ringers 1,000 ML IV ONE (06:00)
[2021-10-17] MEDS ORDERED: Propofol 200 MG/20 ML SDV ONE (07:01)
[2021-10-17] MEDS ORDERED: Furosemide 40 MG Tab PO SCH (08:00)
[2021-10-17] MEDS: Pantoprazole 40 MG Vial IVPUSH SCH (08:11)
[2021-10-17] MEDS: Potassium Chloride 10 MEQ Tab.ER PO SCH (08:12)
[2021-10-17 10:03] VITALS: BP 101/54; PULSE 88
[2021-10-17] MEDS: Metoprolol Succinate 100 MG Tab.ER PO SCH (11:06)
[2021-10-17] MEDS: Lisinopril 5 MG Tab PO SCH (11:06)
--- NOTE | 2021-10-17 11:42 | OR ---
DATE OF OPERATION: 10/17/2021 PREOPERATIVE DIAGNOSIS: GASTROINTESTINAL BLEED. POSTOPERATIVE DIAGNOSIS: GASTROINTESTINAL BLEED. SURGEON: Campbell العلي MD PROCEDURE: FULL-LENGTH COLONOSCOPY WITH SNARE POLYPECTOMY X4. ANESTHESIA: MAC. COMPLICATIONS: None. SPECIMEN: Four villous adenomas, see report. FINDINGS: 1. Full-length diagnostic colonoscopy. 2. Moderate sigmoid diverticulosis without active bleeding. 3. Villous adenomas x4. RECOMMENDATIONS: Ongoing medical care in the hospital with cessation of Coumadin for now. We will discuss further workup with patient given no identifiable bleeding sites at this time. INDICATIONS: Bertha is an 86-year-old with atrial fibrillation on Coumadin, who presented with a GI bleed. Hemoglobin down to 6. EGD done by Dr. Morales failed to show an upper GI source. She was prepped for colonoscopy. DESCRIPTION OF PROCEDURE: The patient was prepped and draped, placed in the left lateral decubitus position. A lubricated Olympus colonoscope was inserted and with relative ease advanced to the cecum. Direct visualization of the ileocecal valve and appendiceal orifice was accomplished. The bowel prep was adequate. There were a few areas with large amount of stool, but most of these could be suctioned. Upon withdrawal, directly in the cecal pouch the patient had 2 villous lesions; one was smaller, approximately 4 mm, the 2nd one was approximately 7 to 8 mm, both removed with snare and suctioned into the same polyp trap #1. In the proximal ascending colon, the patient had a large elongated 2 cm villous lesion along the haustral fold. We removed 2 separate pieces of it, but it was just so flat it was hard to remove in its entirety and was felt safe to not take anymore. Both of these pieces were suctioned into polyp trap #2. The rest of the ascending and transverse colons were benign. The patient does have pretty prominent diverticular disease in the sigmoid colon, at least moderate in severity, but I could not find any active bleeding. There was no signs of colitis. Vascular abnormality seen throughout the entire colon. In the rectal vault, the patient had another larger villous lesion approximately 1 cm, removed with a snare and removed directly out of the rectum with the snare. Retroflexion showed no perianal lesions. Air was then suctioned, scope removed without complication. JOSEFA/YMNOR /[id number]
--- NOTE | 2021-10-17 18:32 | DISCH ---
ADMISSION DIAGNOSES: 1. Gastrointestinal bleed. 2. Chronic atrial fibrillation. 3. Congestive heart failure. 4. Chronic anticoagulation. DISCHARGE DIAGNOSIS: 1. GASTROINTESTINAL BLEED. 2. CHRONIC ANTICOAGULATION SECONDARY TO COUMADIN. 3. CHRONIC ATRIAL FIBRILLATION. 4. HYPERTENSION. 5. CONGESTIVE HEART FAILURE, CHRONIC. 6. HYPOKALEMIA. HISTORY: The patient presented to [facility] in the emergency room on the date of admission with just feeling like she was weak and also had noted that she had been having black stools. [facility] Mccrack[facility] evaluated her at that time, her hemoglobin was down at 6.5, her INR was therapeutic at 2.29. Rest of her lab work was essentially fine other than a slightly elevated troponin and her BNP was elevated at 11,000. She thought there might be a UTI and actually she did have some bacteria in her urine, but it was not a wonderful sample. A culture was obtained. The patient was admitted to the hospital for blood products and cessation of her Coumadin and tentatively treated for her UTI. HOSPITAL COURSE: The patient did well while here, she was given 2 units of blood, her hemoglobin came up to 9.2 the next day, 9.7 the next day and on discharge, 9.9. She did get vitamin K on admit and her Coumadin has been held and she will continue to do so. She had a little hypokalemia after admission due to a dose of Lasix between her units and her potassium is back up to 3.4. We will put her on oral replacement. Urine culture grew out no bacteria, and her Rocephin has been stopped. Regarding her GI bleed, Dr. Morales was here on the day prior to discharge, she did have an EGD which showed no bleeding sites. We prepped her that day for colonoscopy. On the date of discharge, her colonoscopy showed four villous polyps removed, but no signs of any active bleeding. She does have diverticulosis and none of those had active clot or active bleeding. A long discussion with both her and her daughter was entertained. We are going to keep her off her Coumadin for now. Should she make decision for long-term anticoagulation for atrial fibrillation, she would be a candidate for capsule endoscopy prior to this. She will have followup next week with Maddi Vargas for recheck and appropriate lab. COMPLICATIONS: During her stay were none. CONSULTATIONS: None. PROCEDURES: 1. Esophagogastroduodenoscopy. 2. Colonoscopy. DISPOSITION: Discharged home with instruction for followup next week with Maddi Vargas. JOSEFA/MYNOR /[id number]
== END 2021-10-17 12:00 | disposition home or self-care (01) | DRG 377 ==
LOC: CC.ED 09:22 → CC.MS 10:38 → UNDOADMIN 10:38 → CC.MS 12:44
PROVIDERS: ADMIT Physician Assistant Medical; ATTEND Family Medicine
PROC: 30233N1 Transfusion of Nonautologous Red Blood Cells into Peripheral Vein, Percutaneous Approach (ICD-10-PCS; 2021-10-14)
PROC: 0DBK8ZZ Excision of Ascending Colon, Via Natural or Artificial Opening Endoscopic (ICD-10-PCS; principal; 2021-10-17)
PROC: 0DBP8ZZ Excision of Rectum, Via Natural or Artificial Opening Endoscopic (ICD-10-PCS; 2021-10-17)
DX: K92.2 Gastrointestinal hemorrhage, unspecified (principal); K25.0 Acute gastric ulcer with hemorrhage; I50.9 Heart failure, unspecified; I50.23 Acute on chronic systolic (congestive) heart failure; Z95.5 Presence of coronary angioplasty implant and graft; Z95.1 Presence of aortocoronary bypass graft; J44.9 Chronic obstructive pulmonary disease, unspecified; I48.20 Chronic atrial fibrillation, unspecified; Z87.11 Personal history of peptic ulcer disease; N39.0 Urinary tract infection, site not specified; F17.210 Nicotine dependence, cigarettes, uncomplicated; Z88.1 Allergy status to other antibiotic agents; N30.01 Acute cystitis with hematuria; I48.21 Permanent atrial fibrillation; K57.31 Diverticulosis of large intestine without perforation or abscess with bleeding; Z20.822 Contact with and (suspected) exposure to COVID-19; E87.6 Hypokalemia; I11.0 Hypertensive heart disease with heart failure; D12.6 Benign neoplasm of colon, unspecified; F17.200 Nicotine dependence, unspecified, uncomplicated; E78.00 Pure hypercholesterolemia, unspecified; K59.09 Other constipation; M81.0 Age-related osteoporosis without current pathological fracture; Z88.0 Allergy status to penicillin; Z88.8 Allergy status to other drugs, medicaments and biological substances; Z79.01 Long term (current) use of anticoagulants; Z79.899 Other long term (current) drug therapy
CPT/HCPCS: 0241U; 36415; 36430; 71046; 80053; 81001; 82550; 83615; 83735; 83880; 84484; 85018; 85025; 85610; 85730; 86850; 86900; 86901; 86920; 86922; 87086; 93005; 99285-25; A9270-GY; C9113; J0696; J1940; J2704; J7050; J7120; P9016

== ENCOUNTER 2022-06-19 11:02 | Emergency (ER) | payer MEDICARE, BC ==
[2022-06-19 11:20] VITALS: BP 119/54; PULSE 82
== END 2022-06-19 12:27 | disposition home or self-care (01) ==
LOC: CC.ED 11:02
DX: S46.911A Strain of unspecified muscle, fascia and tendon at shoulder and upper arm level, right arm, initial encounter (principal); J44.9 Chronic obstructive pulmonary disease, unspecified; E78.00 Pure hypercholesterolemia, unspecified; I10 Essential (primary) hypertension; F17.210 Nicotine dependence, cigarettes, uncomplicated; Z88.0 Allergy status to penicillin; Z88.8 Allergy status to other drugs, medicaments and biological substances; Z79.899 Other long term (current) drug therapy; X58.XXXA Exposure to other specified factors, initial encounter
CPT/HCPCS: 73030-RT; 99283; 99284

== ENCOUNTER 2022-12-02 11:15 | Observation (INO) | payer MEDICARE, BC ==
[2022-12-02 12:32] LABS: CHLORIDE,CL 99 mEq/L (98-106); ESTIMATED GFR 18 mL/min (>=60); SODIUM,NA 132 mEq/L (136-145)
[2022-12-02] MEDS ORDERED: Diclofenac Sodium 1% Gel 100 GM Tube TOP PRN (14:30)
[2022-12-02] MEDS ORDERED: Ondansetron 4 MG Tab.DIS PO PRN (14:42)
[2022-12-02] MEDS ORDERED: Acetaminophen 325 MG Tab PO PRN (14:42)
[2022-12-02] MEDS ORDERED: Sodium Chloride 0.9% 500 ML IV SCH (14:42)
[2022-12-02] MEDS ORDERED: Sodium Chloride 0.9% 10 ML Syringe FLUSH PRN (14:42)
[2022-12-02] MEDS: Sodium Chloride 0.9% 1,000 ML IV SCH (15:45)
[2022-12-02] MEDS: cefTRIAXone 1 GM Vial IVPUSH SCH (15:46)
[2022-12-02] MEDS: Ferrous Sulfate 324 MG Tab.EC PO SCH (17:29)
[2022-12-02] MEDS: POTASSIUM CHLORIDE 20 MEQ PO SCH (17:35)
[2022-12-02] MEDS ORDERED: Isosorbide Mononitrate 60 MG Tab.ER **PTOM PO SCH (20:00)
[2022-12-02] MEDS ORDERED: PRAVASTATIN 40 MG PO SCH (20:00)
[2022-12-02] MEDS: Heparin Sodium 5,000 Units/ML Vial SUBCUT SCH (20:30)
[2022-12-03] MEDS: Sodium Chloride 0.9% 1,000 ML IV SCH (03:02)
[2022-12-03] MEDS ORDERED: Pantoprazole 40 MG Tab.CR **PTOM PO SCH (07:00)
[2022-12-03] MEDS ORDERED: Aspirin 81 MG Tab.EC PO SCH (08:00)
[2022-12-03] MEDS ORDERED: LISINOPRIL 2.5 MG PO SCH (08:00)
[2022-12-03] MEDS ORDERED: Furosemide 40 MG Tab **PTOM PO SCH (08:00)
[2022-12-03] MEDS ORDERED: METOPROLOL SUCCINATE 100 MG PO SCH (08:00)
[2022-12-03] MEDS ORDERED: Loratadine 10 MG Tab PO SCH (08:00)
[2022-12-03] MEDS: Ferrous Sulfate 324 MG Tab.EC PO SCH ×2 (08:03→17:08)
[2022-12-03] MEDS: Heparin Sodium 5,000 Units/ML Vial SUBCUT SCH (08:04)
[2022-12-03] MEDS: POTASSIUM CHLORIDE 20 MEQ PO SCH ×2 (08:11→17:19)
[2022-12-03] MEDS: cefTRIAXone 1 GM Vial IVPUSH SCH (16:15)
[2022-12-03 16:55] VITALS: BP 138/56; PULSE 80
== END 2022-12-03 17:55 | disposition home or self-care (01) ==
LOC: CC.ED 11:15 → CC.MS 13:35 → UNDOADMOB 13:35 → CC.MS 14:18
PROVIDERS: ADMIT Nurse Practitioner Family; ATTEND Nurse Practitioner Family
DX: N12 Tubulo-interstitial nephritis, not specified as acute or chronic (principal); N17.9 Acute kidney failure, unspecified; I48.91 Unspecified atrial fibrillation; I10 Essential (primary) hypertension; E78.00 Pure hypercholesterolemia, unspecified; J44.9 Chronic obstructive pulmonary disease, unspecified; M81.0 Age-related osteoporosis without current pathological fracture; Z95.1 Presence of aortocoronary bypass graft; Z20.822 Contact with and (suspected) exposure to COVID-19; Z79.899 Other long term (current) drug therapy; Z88.0 Allergy status to penicillin; Z88.1 Allergy status to other antibiotic agents; Z88.8 Allergy status to other drugs, medicaments and biological substances; Z98.890 Other specified postprocedural states; Z90.49 Acquired absence of other specified parts of digestive tract
CPT/HCPCS: 36415; 71046; 80053; 81001; 84484; 85025; 86140; 87086; 87088; 87186; 87804; 93005; 96372; 96374; 96376; 99285; A9270-GY; G0378; J0696; J1644; J7030; U0002

== ENCOUNTER 2024-02-16 09:52 | Emergency (ER) | payer MEDICARE, BC ==
[2024-02-16 10:05] VITALS: BP 117/57; PULSE 136
[2024-02-16 10:33] LABS: BASOPHILS ABSOLUTE AUTO 0.05 10^3/uL (0.00-0.50); BASOPHILS PERCENT AUTO 0.6 % (0-1); EOSINOPHILS ABSOLUTE AUTO 0.09 10^3/uL (0.00-1.50); EOSINOPHILS PERCENT AUTO 1.2 % (0-6); HEMATOCRIT 32.6 % (37.0-47.0); HEMOGLOBIN 10.6 g/dL (12.0-16.0); IMMATURE GRAN ABSOLUTE AUTO 0.01 10^3/uL (0.00-0.49); IMMATURE GRAN PERCENT AUTO 0.1 % (0.0-4.9); LYMPHOCYTES ABSOLUTE AUTO 0.81 10^3/uL (0.60-5.00); LYMPHOCYTES PERCENT AUTO 10.4 % (24-44); MEAN CORPUSCULAR HEMOGLOBIN 32.1 pg (27.0-32.0); MEAN CORPUSCULAR HGB CONC 32.5 g/dL (32.0-36.0); MEAN CORPUSCULAR VOLUME 98.8 fL (83.0-97.0); MONOCYTES ABSOLUTE AUTO 1.31 10^3/uL (0.00-1.50); MONOCYTES PERCENT AUTO 16.9 % (0-10); NEUTROPHILS PERCENT AUTO 70.8 % (41-71); PLATELET COUNT,PLT 141 10^3/uL (150-400); WHITE BLOOD CELL COUNT,WBC 7.8 10^3/uL (4.0-11.0)
[2024-02-16 10:45] LABS: ALBUMIN 3.6 g/dL (3.4-5.0); BILIRUBIN TOTAL 1.1 mg/dL (0.0-1.0); C-REACTIVE PROTEIN 2.52 mg/dL (<=0.50); CREATININE 1.3 mg/dL (0.6-1.0); EST CRCL DRUG DOSING (CG) 23.66 mL/min; MAGNESIUM 2.3 mg/dL (1.8-2.4); POTASSIUM,K 4.4 mEq/L (3.5-5.0); PROTEIN TOTAL,TP 7.1 g/dL (6.4-8.2)
[2024-02-16 11:05] LABS: CORONAVIRUS COVID-19 NAA NEGATIVE (NEGATIVE); INFLUENZA A NAA NEGATIVE (NEGATIVE); INFLUENZA B NAA NEGATIVE (NEGATIVE)
== END 2024-02-16 11:40 | disposition home or self-care (01) ==
LOC: CC.ED 09:52
DX: J01.00 Acute maxillary sinusitis, unspecified (principal); I10 Essential (primary) hypertension; J44.9 Chronic obstructive pulmonary disease, unspecified; E78.00 Pure hypercholesterolemia, unspecified; F17.210 Nicotine dependence, cigarettes, uncomplicated; Z88.1 Allergy status to other antibiotic agents; Z88.8 Allergy status to other drugs, medicaments and biological substances; Z79.82 Long term (current) use of aspirin; Z79.899 Other long term (current) drug therapy
CPT/HCPCS: 0240U; 36415; 71046; 80053; 83735; 85025; 86140; 99284

== ENCOUNTER 2024-05-15 17:51 | Emergency (ER) | payer MEDICARE, BC ==
[2024-05-15 18:20] LABS: BASOPHILS ABSOLUTE AUTO 0.06 10^3/uL (0.00-0.50); BASOPHILS PERCENT AUTO 0.6 % (0-1); EOSINOPHILS ABSOLUTE AUTO 0.18 10^3/uL (0.00-1.50); EOSINOPHILS PERCENT AUTO 1.7 % (0-6); HEMOGLOBIN 9.1 g/dL (12.0-16.0); IMMATURE GRAN ABSOLUTE AUTO 0.02 10^3/uL (0.00-0.49); IMMATURE GRAN PERCENT AUTO 0.2 % (0.0-4.9); LYMPHOCYTES ABSOLUTE AUTO 0.96 10^3/uL (0.60-5.00); LYMPHOCYTES PERCENT AUTO 9.1 % (24-44); MEAN CORPUSCULAR HEMOGLOBIN 29.2 pg (27.0-32.0); MEAN CORPUSCULAR HGB CONC 30.3 g/dL (32.0-36.0); MEAN CORPUSCULAR VOLUME 96.2 fL (83.0-97.0); MONOCYTES ABSOLUTE AUTO 1.48 10^3/uL (0.00-1.50); NEUTROPHILS ABSOLUTE AUTO 7.86 x10^3/uL (1.80-8.00); NEUTROPHILS PERCENT AUTO 74.4 % (41-71); PLATELET COUNT,PLT 158 10^3/uL (150-400); RED BLOOD CELL COUNT 3.12 x10^6/uL (4.00-5.50); WHITE BLOOD CELL COUNT,WBC 10.6 10^3/uL (4.0-11.0)
[2024-05-15 18:31] LABS: APPEARANCE,URINE CLEAR (CLEAR); BILIRUBIN,URINE NEGATIVE (NEGATIVE); COLOR,URINE YELLOW (YELLOW); GLUCOSE,URINE NEGATIVE (NEGATIVE); KETONES,URINE NEGATIVE (NEGATIVE); LEUKOCYTE ESTERASE,URINE SMALL (NEGATIVE); NITRITE,URINE NEGATIVE (NEGATIVE); OCCULT BLOOD,URINE NEGATIVE (NEGATIVE); PH,URINE 6.5 (4.5-8.0); PROTEIN,URINE NEGATIVE (NEGATIVE); UROBILINOGEN,URINE 0.2 EU/dL (0.2-1.0)
[2024-05-15 18:37] LABS: BACTERIA,URINE FEW /HPF (NOT SEEN); EPITHELIAL CELLS,URINE FEW /HPF (NOT SEEN); RBC,URINE 0-5 /HPF (0-5); WBC CLUMPS,URINE FEW /HPF (NOT SEEN)
[2024-05-15 18:37] LABS: ALANINE AMINOTRANSFERASE,ALT 12 U/L (12-78); ALBUMIN 3.2 g/dL (3.4-5.0); ALKALINE PHOSPHATASE 70 U/L (46-116); ASPARTATE AMNIOTRANSFERASE,AST 23 U/L (15-37); BILIRUBIN TOTAL 1.5 mg/dL (0.0-1.0); BLOOD UREA NITROGEN,BUN 39 mg/dL (7-18); CALCIUM 9.3 mg/dL (8.4-10.1); CARBON DIOXIDE,CO2 32 mmol/L (21-32); CHLORIDE,CL 97 mEq/L (98-106); CREATININE 1.5 mg/dL (0.6-1.0); GLUCOSE RANDOM 107 mg/dL (75-99); MAGNESIUM 2.1 mg/dL (1.8-2.4); POTASSIUM,K 3.8 mEq/L (3.5-5.0); PROTEIN TOTAL,TP 6.6 g/dL (6.4-8.2); SODIUM,NA 136 mEq/L (136-145)
[2024-05-15 18:44] LABS: ESTIMATED GFR 33 mL/min (>=60)
[2024-05-15] MEDS: cefTRIAXone 1 GM Vial IVPUSH ONE (20:06)
[2024-05-15] MEDS: Furosemide 40 MG/4 ML VIAL IVPUSH ONE (20:11)
[2024-05-15 20:28] VITALS: BP 102/47; PULSE 97
== END 2024-05-15 21:00 ==
LOC: CC.ED 17:51
DX: I50.9 Heart failure, unspecified (principal); R79.89 Other specified abnormal findings of blood chemistry; N30.01 Acute cystitis with hematuria; I10 Essential (primary) hypertension; E78.00 Pure hypercholesterolemia, unspecified; F17.200 Nicotine dependence, unspecified, uncomplicated; Z88.0 Allergy status to penicillin; Z88.8 Allergy status to other drugs, medicaments and biological substances; Z79.82 Long term (current) use of aspirin; Z79.899 Other long term (current) drug therapy
CPT/HCPCS: 36415; 70450; 71046; 80053; 81001; 83735; 83880; 84484; 85025; 87086; 93005; 96374; 96375; 99285; J0696; J1940

== ENCOUNTER 2024-06-04 13:32 | Inpatient (IN) | payer MEDICARE, BC ==
[2024-06-04 14:03] LABS: BASOPHILS ABSOLUTE AUTO 0.08 10^3/uL (0.00-0.50); BASOPHILS PERCENT AUTO 0.9 % (0-1); EOSINOPHILS ABSOLUTE AUTO 0.21 10^3/uL (0.00-1.50); EOSINOPHILS PERCENT AUTO 2.2 % (0-6); HEMATOCRIT 28.3 % (37.0-47.0); HEMOGLOBIN 8.3 g/dL (12.0-16.0); IMMATURE GRAN ABSOLUTE AUTO 0.01 10^3/uL (0.00-0.49); IMMATURE GRAN PERCENT AUTO 0.1 % (0.0-4.9); LYMPHOCYTES ABSOLUTE AUTO 1.26 10^3/uL (0.60-5.00); LYMPHOCYTES PERCENT AUTO 13.4 % (24-44); MEAN CORPUSCULAR HEMOGLOBIN 27.9 pg (27.0-32.0); MEAN CORPUSCULAR HGB CONC 29.3 g/dL (32.0-36.0); MONOCYTES ABSOLUTE AUTO 1.11 10^3/uL (0.00-1.50); MONOCYTES PERCENT AUTO 11.8 % (0-10); NEUTROPHILS ABSOLUTE AUTO 6.73 x10^3/uL (1.80-8.00); NEUTROPHILS PERCENT AUTO 71.6 % (41-71); PLATELET COUNT,PLT 191 10^3/uL (150-400); RED BLOOD CELL COUNT 2.98 x10^6/uL (4.00-5.50); WHITE BLOOD CELL COUNT,WBC 9.4 10^3/uL (4.0-11.0)
[2024-06-04 14:24] LABS: ALBUMIN 3.1 g/dL (3.4-5.0); BILIRUBIN TOTAL 1.3 mg/dL (0.0-1.0); C-REACTIVE PROTEIN 0.76 mg/dL (<=0.50); CALCIUM 9.2 mg/dL (8.4-10.1); CREATININE 1.3 mg/dL (0.6-1.0); EST CRCL DRUG DOSING (CG) 24.16 mL/min; POTASSIUM,K 4.3 mEq/L (3.5-5.0); PROTEIN TOTAL,TP 6.4 g/dL (6.4-8.2)
[2024-06-04] MEDS: Iopamidol 755 Mg/ML 100 ML Bottle IVPUSH ONE (15:15)
[2024-06-04] MEDS ORDERED: Acetaminophen 325 MG Tab PO PRN (16:22)
[2024-06-04] MEDS ORDERED: Ondansetron 4 MG/2 ML SDV IV PRN (16:22)
[2024-06-04] MEDS ORDERED: Ondansetron 4 MG Tab.DIS PO PRN (16:22)
[2024-06-04] MEDS ORDERED: Sodium Chloride 0.9% 10 ML Syringe FLUSH PRN (16:22)
[2024-06-04] MEDS: Furosemide 40 MG/4 ML VIAL IVPUSH ONE (17:04)
[2024-06-04] MEDS: Gabapentin 300 MG Cap PO SCH (19:24)
[2024-06-04] MEDS: Apixaban 5 MG Tab PO SCH (19:24)
[2024-06-04] MEDS ORDERED: Simvastatin 20 MG Tab PO SCH (20:00)
[2024-06-05 07:42] LABS: BASOPHILS ABSOLUTE AUTO 0.09 10^3/uL (0.00-0.50); EOSINOPHILS ABSOLUTE AUTO 0.27 10^3/uL (0.00-1.50); EOSINOPHILS PERCENT AUTO 2.9 % (0-6); HEMATOCRIT 28.6 % (37.0-47.0); HEMOGLOBIN 8.4 g/dL (12.0-16.0); IMMATURE GRAN ABSOLUTE AUTO 0.01 10^3/uL (0.00-0.49); IMMATURE GRAN PERCENT AUTO 0.1 % (0.0-4.9); LYMPHOCYTES ABSOLUTE AUTO 1.27 10^3/uL (0.60-5.00); LYMPHOCYTES PERCENT AUTO 13.7 % (24-44); MEAN CORPUSCULAR HEMOGLOBIN 27.5 pg (27.0-32.0); MEAN CORPUSCULAR HGB CONC 29.4 g/dL (32.0-36.0); MEAN CORPUSCULAR VOLUME 93.8 fL (83.0-97.0); MONOCYTES ABSOLUTE AUTO 0.97 10^3/uL (0.00-1.50); MONOCYTES PERCENT AUTO 10.5 % (0-10); NEUTROPHILS ABSOLUTE AUTO 6.66 x10^3/uL (1.80-8.00); NEUTROPHILS PERCENT AUTO 71.8 % (41-71); PLATELET COUNT,PLT 211 10^3/uL (150-400); RED BLOOD CELL COUNT 3.05 x10^6/uL (4.00-5.50); WHITE BLOOD CELL COUNT,WBC 9.3 10^3/uL (4.0-11.0)
[2024-06-05] MEDS ORDERED: Non-Formulary Medication 1 Each (Pravastatin 40 MG Tablet) PO SCH (08:00)
[2024-06-05] MEDS: Sennosides 8.6 MG Tab PO SCH (08:02)
[2024-06-05] MEDS: Digoxin 125 MCG Tab PO SCH (08:02)
[2024-06-05] MEDS: Metoprolol Succinate 25 MG Tab.ER PO SCH (08:02)
[2024-06-05] MEDS: Aspirin 81 MG Tab.EC PO SCH (08:03)
[2024-06-05] MEDS: Acetaminophen 325 MG Tab PO SCH (08:03)
[2024-06-05] MEDS: Furosemide 40 MG/4 ML VIAL IVPUSH SCH (08:04)
[2024-06-05 08:09] LABS: C-REACTIVE PROTEIN 0.67 mg/dL (<=0.50); CREATININE 1.2 mg/dL (0.6-1.0); EST CRCL DRUG DOSING (CG) 26.26 mL/min; POTASSIUM,K 3.7 mEq/L (3.5-5.0)
[2024-06-06 07:45] LABS: BASOPHILS ABSOLUTE AUTO 0.08 10^3/uL (0.00-0.50); BASOPHILS PERCENT AUTO 0.9 % (0-1); EOSINOPHILS ABSOLUTE AUTO 0.35 10^3/uL (0.00-1.50); HEMATOCRIT 28.9 % (37.0-47.0); HEMOGLOBIN 8.6 g/dL (12.0-16.0); IMMATURE GRAN ABSOLUTE AUTO 0.01 10^3/uL (0.00-0.49); IMMATURE GRAN PERCENT AUTO 0.1 % (0.0-4.9); LYMPHOCYTES ABSOLUTE AUTO 1.15 10^3/uL (0.60-5.00); LYMPHOCYTES PERCENT AUTO 13.1 % (24-44); MEAN CORPUSCULAR HEMOGLOBIN 27.5 pg (27.0-32.0); MEAN CORPUSCULAR HGB CONC 29.8 g/dL (32.0-36.0); MEAN CORPUSCULAR VOLUME 92.3 fL (83.0-97.0); MONOCYTES ABSOLUTE AUTO 1.02 10^3/uL (0.00-1.50); MONOCYTES PERCENT AUTO 11.7 % (0-10); NEUTROPHILS ABSOLUTE AUTO 6.14 x10^3/uL (1.80-8.00); NEUTROPHILS PERCENT AUTO 70.2 % (41-71); PLATELET COUNT,PLT 199 10^3/uL (150-400); RED BLOOD CELL COUNT 3.13 x10^6/uL (4.00-5.50); WHITE BLOOD CELL COUNT,WBC 8.8 10^3/uL (4.0-11.0)
[2024-06-06 08:22] LABS: ALBUMIN 3.2 g/dL (3.4-5.0); BILIRUBIN TOTAL 1.5 mg/dL (0.0-1.0); C-REACTIVE PROTEIN 0.55 mg/dL (<=0.50); CREATININE 1.3 mg/dL (0.6-1.0); EST CRCL DRUG DOSING (CG) 24.24 mL/min; POTASSIUM,K 3.3 mEq/L (3.5-5.0); PROTEIN TOTAL,TP 6.4 g/dL (6.4-8.2)
[2024-06-06] MEDS: Metoprolol Succinate 25 MG Tab.ER PO ONE (09:00)
[2024-06-06] MEDS: Potassium Chloride 20 MEQ Tab.ER PO SCH (12:48)
[2024-06-06] MEDS: Docusate Sodium 100 MG Cap PO PRN (17:44)
[2024-06-07 07:52] LABS: BASOPHILS ABSOLUTE AUTO 0.08 10^3/uL (0.00-0.50); EOSINOPHILS ABSOLUTE AUTO 0.36 10^3/uL (0.00-1.50); EOSINOPHILS PERCENT AUTO 4.4 % (0-6); HEMATOCRIT 30.1 % (37.0-47.0); HEMOGLOBIN 8.8 g/dL (12.0-16.0); IMMATURE GRAN ABSOLUTE AUTO 0.01 10^3/uL (0.00-0.49); IMMATURE GRAN PERCENT AUTO 0.1 % (0.0-4.9); LYMPHOCYTES ABSOLUTE AUTO 1.01 10^3/uL (0.60-5.00); LYMPHOCYTES PERCENT AUTO 12.4 % (24-44); MEAN CORPUSCULAR HEMOGLOBIN 27.2 pg (27.0-32.0); MEAN CORPUSCULAR HGB CONC 29.2 g/dL (32.0-36.0); MEAN CORPUSCULAR VOLUME 92.9 fL (83.0-97.0); MONOCYTES ABSOLUTE AUTO 0.85 10^3/uL (0.00-1.50); MONOCYTES PERCENT AUTO 10.4 % (0-10); NEUTROPHILS ABSOLUTE AUTO 5.85 x10^3/uL (1.80-8.00); NEUTROPHILS PERCENT AUTO 71.7 % (41-71); PLATELET COUNT,PLT 183 10^3/uL (150-400); RED BLOOD CELL COUNT 3.24 x10^6/uL (4.00-5.50); WHITE BLOOD CELL COUNT,WBC 8.2 10^3/uL (4.0-11.0)
[2024-06-07 08:11] LABS: BLOOD UREA NITROGEN,BUN 26 mg/dL (7-18); CALCIUM 9.1 mg/dL (8.4-10.1); CARBON DIOXIDE,CO2 34 mmol/L (21-32); CHLORIDE,CL 104 mEq/L (98-106); CREATININE 1.2 mg/dL (0.6-1.0); EST CRCL DRUG DOSING (CG) 24.85 mL/min; GLUCOSE RANDOM 98 mg/dL (75-99); POTASSIUM,K 3.4 mEq/L (3.5-5.0); SODIUM,NA 146 mEq/L (136-145)
[2024-06-07 08:32] LABS: C-REACTIVE PROTEIN < 0.50 mg/dL (<=0.50); ESTIMATED GFR 43 mL/min (>=60)
[2024-06-07 12:59] VITALS: BP 102/49; PULSE 66
== END 2024-06-07 12:40 | disposition home or self-care (01) | DRG 291 ==
LOC: CC.ED 13:32 → UNDOADMIN 16:07 → CC.MS 16:07 → CC.ED 16:10 → CC.MS 16:22
PROVIDERS: ADMIT Nurse Practitioner Family; ATTEND Physician Assistant Medical
DX: I26.99 Other pulmonary embolism without acute cor pulmonale (principal); I11.0 Hypertensive heart disease with heart failure; I26.93 Single subsegmental thrombotic pulmonary embolism without acute cor pulmonale; I50.9 Heart failure, unspecified; I48.91 Unspecified atrial fibrillation; E78.00 Pure hypercholesterolemia, unspecified; J44.9 Chronic obstructive pulmonary disease, unspecified; K59.09 Other constipation; Z88.1 Allergy status to other antibiotic agents; M81.0 Age-related osteoporosis without current pathological fracture; D64.9 Anemia, unspecified; Z88.0 Allergy status to penicillin; Z88.8 Allergy status to other drugs, medicaments and biological substances; Z79.899 Other long term (current) drug therapy; Z79.82 Long term (current) use of aspirin; Z95.1 Presence of aortocoronary bypass graft; Z95.5 Presence of coronary angioplasty implant and graft; Z87.11 Personal history of peptic ulcer disease; Z98.890 Other specified postprocedural states
CPT/HCPCS: 36415; 71045; 71275; 80048; 80053; 83690; 83735; 83880; 84484; 85025; 85379; 86140; 93005; 93010; 97110-GP; 97161-GP; 99284; 99285; A9270-GY; J1940; Q9967

== ENCOUNTER 2024-06-11 18:34 | Emergency (ER) | payer MEDICARE, BC ==
[2024-06-11 18:53] LABS: BASOPHILS ABSOLUTE AUTO 0.07 10^3/uL (0.00-0.50); BASOPHILS PERCENT AUTO 0.6 % (0-1); EOSINOPHILS ABSOLUTE AUTO 0.07 10^3/uL (0.00-1.50); EOSINOPHILS PERCENT AUTO 0.6 % (0-6); HEMATOCRIT 22.1 % (37.0-47.0); IMMATURE GRAN ABSOLUTE AUTO 0.03 10^3/uL (0.00-0.49); IMMATURE GRAN PERCENT AUTO 0.3 % (0.0-4.9); LYMPHOCYTES PERCENT AUTO 5.3 % (24-44); MEAN CORPUSCULAR HEMOGLOBIN 27.8 pg (27.0-32.0); MEAN CORPUSCULAR HGB CONC 30.3 g/dL (32.0-36.0); MEAN CORPUSCULAR VOLUME 91.7 fL (83.0-97.0); MONOCYTES ABSOLUTE AUTO 0.75 10^3/uL (0.00-1.50); MONOCYTES PERCENT AUTO 6.6 % (0-10); NEUTROPHILS ABSOLUTE AUTO 9.88 x10^3/uL (1.80-8.00); NEUTROPHILS PERCENT AUTO 86.6 % (41-71); PLATELET COUNT,PLT 219 10^3/uL (150-400); RED BLOOD CELL COUNT 2.41 x10^6/uL (4.00-5.50); WHITE BLOOD CELL COUNT,WBC 11.4 10^3/uL (4.0-11.0)
[2024-06-11] MEDS: Pantoprazole 40 MG Vial IVPUSH ONE (19:00)
[2024-06-11 19:02] LABS: HEMOGLOBIN 6.7 g/dL (12.0-16.0)
[2024-06-11 19:08] LABS: BILIRUBIN TOTAL 1.7 mg/dL (0.0-1.0); CALCIUM 9.2 mg/dL (8.4-10.1); CREATININE 1.4 mg/dL (0.6-1.0); EST CRCL DRUG DOSING (CG) 19.7 mL/min; POTASSIUM,K 3.7 mEq/L (3.5-5.0); PROTEIN TOTAL,TP 6.4 g/dL (6.4-8.2)
[2024-06-11] MEDS: Pantoprazole 40 MG in Sodium Chloride 0.9% 100 ML IV SCH (19:18)
[2024-06-11] MEDS ORDERED: Sodium Chloride 0.9% 250 ML IV SCH (20:00)
[2024-06-11 20:21] LABS: APPEARANCE,URINE CLEAR (CLEAR); BILIRUBIN,URINE NEGATIVE (NEGATIVE); COLOR,URINE YELLOW (YELLOW); GLUCOSE,URINE NEGATIVE (NEGATIVE); KETONES,URINE NEGATIVE (NEGATIVE); LEUKOCYTE ESTERASE,URINE SMALL (NEGATIVE); NITRITE,URINE NEGATIVE (NEGATIVE); OCCULT BLOOD,URINE TRACE-INTACT (NEGATIVE); PH,URINE 5.5 (4.5-8.0); PROTEIN,URINE NEGATIVE (NEGATIVE); UROBILINOGEN,URINE 0.2 EU/dL (0.2-1.0)
[2024-06-11 20:24] LABS: BACTERIA,URINE NOT SEEN /HPF (NOT SEEN); EPITHELIAL CELLS,URINE RARE /HPF (NOT SEEN); MUCUS,URINE OCCASIONAL /HPF (NOT SEEN); RBC,URINE 0-5 /HPF (0-5)
[2024-06-11] MEDS: Furosemide 40 MG/4 ML VIAL IVPUSH ONE (21:59)
[2024-06-12 00:03] VITALS: BP 114/89; PULSE 90
== END 2024-06-12 00:20 ==
LOC: CC.ED 18:34
DX: K92.2 Gastrointestinal hemorrhage, unspecified (principal); D64.9 Anemia, unspecified; I10 Essential (primary) hypertension; J44.9 Chronic obstructive pulmonary disease, unspecified; E78.00 Pure hypercholesterolemia, unspecified; Z88.0 Allergy status to penicillin; Z88.8 Allergy status to other drugs, medicaments and biological substances; Z79.82 Long term (current) use of aspirin; Z79.899 Other long term (current) drug therapy
CPT/HCPCS: 36415; 36430; 71045; 74176; 80053; 81001; 83605; 83735; 84484; 85025; 86850; 86900; 86901; 86920; 86922; 93005; 93010; 96365; 96366; 96375; 99284; 99285; J1940; J2470; J3490; P9016

== ENCOUNTER 2024-07-21 11:48 | Inpatient (IN) | payer MEDICARE, BC ==
[2024-07-21 12:04] LABS: BASOPHILS ABSOLUTE AUTO 0.04 10^3/uL (0.00-0.50); BASOPHILS PERCENT AUTO 0.5 % (0-1); EOSINOPHILS ABSOLUTE AUTO 0.06 10^3/uL (0.00-1.50); EOSINOPHILS PERCENT AUTO 0.8 % (0-6); IMMATURE GRAN ABSOLUTE AUTO 0.01 10^3/uL (0.00-0.49); IMMATURE GRAN PERCENT AUTO 0.1 % (0.0-4.9); LYMPHOCYTES ABSOLUTE AUTO 0.87 10^3/uL (0.60-5.00); MEAN CORPUSCULAR HEMOGLOBIN 22.2 pg (27.0-32.0); MEAN CORPUSCULAR HGB CONC 28.1 g/dL (32.0-36.0); MEAN CORPUSCULAR VOLUME 78.9 fL (83.0-97.0); MONOCYTES ABSOLUTE AUTO 1.08 10^3/uL (0.00-1.50); MONOCYTES PERCENT AUTO 13.7 % (0-10); NEUTROPHILS ABSOLUTE AUTO 5.85 x10^3/uL (1.80-8.00); NEUTROPHILS PERCENT AUTO 73.9 % (41-71); PLATELET COUNT,PLT 207 10^3/uL (150-400); RED BLOOD CELL COUNT 2.66 x10^6/uL (4.00-5.50); WHITE BLOOD CELL COUNT,WBC 7.9 10^3/uL (4.0-11.0)
[2024-07-21 12:07] LABS: HEMOGLOBIN 5.9 g/dL (12.0-16.0)
[2024-07-21 12:10] LABS: APPEARANCE,URINE CLEAR (CLEAR); BILIRUBIN,URINE NEGATIVE (NEGATIVE); COLOR,URINE YELLOW (YELLOW); GLUCOSE,URINE NEGATIVE (NEGATIVE); KETONES,URINE NEGATIVE (NEGATIVE); LEUKOCYTE ESTERASE,URINE SMALL (NEGATIVE); NITRITE,URINE NEGATIVE (NEGATIVE); OCCULT BLOOD,URINE TRACE-INTACT (NEGATIVE); PROTEIN,URINE NEGATIVE (NEGATIVE)
[2024-07-21 12:24] LABS: BACTERIA,URINE FEW /HPF (NOT SEEN); EPITHELIAL CELLS,URINE FEW /HPF (NOT SEEN); RBC,URINE 0-5 /HPF (0-5); WBC CLUMPS,URINE FEW /HPF (NOT SEEN); WBC,URINE 30-40 /HPF (0-5)
[2024-07-21 12:27] LABS: ALANINE AMINOTRANSFERASE,ALT 69 U/L (12-78); ALKALINE PHOSPHATASE 84 U/L (46-116); ASPARTATE AMNIOTRANSFERASE,AST 76 U/L (15-37); BILIRUBIN TOTAL 1.6 mg/dL (0.0-1.0); BLOOD UREA NITROGEN,BUN 30 mg/dL (7-18); CALCIUM 8.8 mg/dL (8.4-10.1); CARBON DIOXIDE,CO2 25 mmol/L (21-32); CHLORIDE,CL 101 mEq/L (98-106); CREATININE 1.6 mg/dL (0.6-1.0); DIGOXIN 2.3 ng/mL (0.9-2.0); GLUCOSE RANDOM 112 mg/dL (75-99); POTASSIUM,K 3.8 mEq/L (3.5-5.0); PRO B-TYPE NATRIUR PEPT,BNPPRO 14890 pg/mL (0-1000); PROTEIN TOTAL,TP 6.3 g/dL (6.4-8.2); SODIUM,NA 136 mEq/L (136-145)
[2024-07-21 12:31] LABS: ESTIMATED GFR 31 mL/min (>=60)
[2024-07-21] MEDS ORDERED: Ondansetron 4 MG Tab.DIS PO PRN (14:00)
[2024-07-21] MEDS ORDERED: Ondansetron 4 MG/2 ML SDV IV PRN (14:00)
[2024-07-21] MEDS ORDERED: Acetaminophen 325 MG Tab PO PRN (14:00)
[2024-07-21] MEDS: Pantoprazole 40 MG Vial IVPUSH SCH (14:33)
[2024-07-21] MEDS: Furosemide 20 MG/2 ML VIAL IVPUSH ONE ×2 (14:34→16:35)
[2024-07-21] MEDS: cefTRIAXone 1 GM Vial IVPUSH SCH (14:37)
[2024-07-21] MEDS: cefTRIAXone 1 GM Vial IVPUSH ONE (14:44)
[2024-07-21] MEDS: Sodium Chloride 0.9% 250 ML IV SCH (14:50)
[2024-07-21] MEDS: Sodium Chloride 0.9% 250 ML ONE (14:58)
[2024-07-21] MEDS ORDERED: Hypromellose 0.3% Ophth Soln 15 ML Bottle EYEBOTH PRN (18:49)
[2024-07-21 19:47] LABS: HEMATOCRIT 30.3 % (37.0-47.0); HEMOGLOBIN 9.1 g/dL (12.0-16.0)
[2024-07-22 07:11] LABS: BASOPHILS ABSOLUTE AUTO 0.03 10^3/uL (0.00-0.50); BASOPHILS PERCENT AUTO 0.3 % (0-1); EOSINOPHILS ABSOLUTE AUTO 0.09 10^3/uL (0.00-1.50); HEMATOCRIT 27.8 % (37.0-47.0); HEMOGLOBIN 8.4 g/dL (12.0-16.0); IMMATURE GRAN ABSOLUTE AUTO 0.02 10^3/uL (0.00-0.49); IMMATURE GRAN PERCENT AUTO 0.2 % (0.0-4.9); LYMPHOCYTES ABSOLUTE AUTO 0.88 10^3/uL (0.60-5.00); LYMPHOCYTES PERCENT AUTO 9.4 % (24-44); MEAN CORPUSCULAR HEMOGLOBIN 24.7 pg (27.0-32.0); MEAN CORPUSCULAR HGB CONC 30.2 g/dL (32.0-36.0); MEAN CORPUSCULAR VOLUME 81.8 fL (83.0-97.0); MONOCYTES ABSOLUTE AUTO 1.13 10^3/uL (0.00-1.50); MONOCYTES PERCENT AUTO 12.1 % (0-10); NEUTROPHILS ABSOLUTE AUTO 7.22 x10^3/uL (1.80-8.00); PLATELET COUNT,PLT 158 10^3/uL (150-400); WHITE BLOOD CELL COUNT,WBC 9.4 10^3/uL (4.0-11.0)
[2024-07-22 07:26] LABS: CALCIUM 8.3 mg/dL (8.4-10.1); CREATININE 1.6 mg/dL (0.6-1.0); DIGOXIN 1.5 ng/mL (0.9-2.0); EST CRCL DRUG DOSING (CG) 17.32 mL/min; MAGNESIUM 1.7 mg/dL (1.8-2.4); POTASSIUM,K 3.2 mEq/L (3.5-5.0)
[2024-07-22] MEDS: Metoprolol Succinate 25 MG Tab.ER PO SCH (07:27)
[2024-07-22] MEDS: Aspirin 81 MG Tab.EC PO SCH (07:30)
[2024-07-22] MEDS: Potassium Chloride 20 MEQ Tab.ER PO SCH ×2 (07:30→19:33)
[2024-07-22] MEDS: Furosemide 40 MG/4 ML VIAL IVPUSH SCH (07:30)
[2024-07-22] MEDS: Sennosides 8.6 MG Tab PO SCH (07:30)
[2024-07-22] MEDS: Potassium Chloride 10 MEQ Tab.ER PO ONE (09:58)
[2024-07-22] MEDS: Magnesium Sulfate/Water 2 GM in Premix Bag 1 BAG IV ONE (09:59)
[2024-07-22] MEDS: Digoxin 125 MCG Tab PO SCH (11:57)
[2024-07-22] MEDS: Simvastatin 20 MG Tab PO SCH (19:31)
[2024-07-23 07:08] LABS: BASOPHILS ABSOLUTE AUTO 0.03 10^3/uL (0.00-0.50); BASOPHILS PERCENT AUTO 0.3 % (0-1); EOSINOPHILS ABSOLUTE AUTO 0.13 10^3/uL (0.00-1.50); EOSINOPHILS PERCENT AUTO 1.2 % (0-6); HEMATOCRIT 28.3 % (37.0-47.0); HEMOGLOBIN 8.5 g/dL (12.0-16.0); IMMATURE GRAN ABSOLUTE AUTO 0.02 10^3/uL (0.00-0.49); IMMATURE GRAN PERCENT AUTO 0.2 % (0.0-4.9); LYMPHOCYTES ABSOLUTE AUTO 0.95 10^3/uL (0.60-5.00); LYMPHOCYTES PERCENT AUTO 8.7 % (24-44); MEAN CORPUSCULAR HEMOGLOBIN 24.4 pg (27.0-32.0); MEAN CORPUSCULAR VOLUME 81.3 fL (83.0-97.0); MONOCYTES ABSOLUTE AUTO 1.32 10^3/uL (0.00-1.50); MONOCYTES PERCENT AUTO 12.1 % (0-10); NEUTROPHILS PERCENT AUTO 77.5 % (41-71); PLATELET COUNT,PLT 143 10^3/uL (150-400); RED BLOOD CELL COUNT 3.48 x10^6/uL (4.00-5.50)
[2024-07-23 07:28] LABS: ALBUMIN 2.6 g/dL (3.4-5.0); BILIRUBIN TOTAL 1.1 mg/dL (0.0-1.0); CALCIUM 8.3 mg/dL (8.4-10.1); CREATININE 1.5 mg/dL (0.6-1.0); EST CRCL DRUG DOSING (CG) 18.19 mL/min; MAGNESIUM 2.1 mg/dL (1.8-2.4); POTASSIUM,K 3.4 mEq/L (3.5-5.0); PROTEIN TOTAL,TP 5.6 g/dL (6.4-8.2)
[2024-07-23] MEDS: Furosemide 40 MG Tab PO SCH (07:38)
[2024-07-23 10:23] VITALS: BP 113/42; PULSE 76
[2024-07-23] MEDS: Pantoprazole 40 MG Tab.CR PO STA (11:26)
== END 2024-07-23 11:30 | disposition home or self-care (01) | DRG 811 ==
LOC: CC.FCMC 11:48 → CC.DI 11:48 → CC.MS 13:55 → UNDOADMIN 13:55 → CC.MS 14:00
PROVIDERS: ADMIT Nurse Practitioner; ATTEND Nurse Practitioner
PROC: 30233N1 Transfusion of Nonautologous Red Blood Cells into Peripheral Vein, Percutaneous Approach (ICD-10-PCS; principal; 2024-07-21)
DX: D62 Acute posthemorrhagic anemia (principal); I26.93 Single subsegmental thrombotic pulmonary embolism without acute cor pulmonale; I50.23 Acute on chronic systolic (congestive) heart failure; K92.1 Melena; N39.0 Urinary tract infection, site not specified; Z51.5 Encounter for palliative care; I48.91 Unspecified atrial fibrillation; N28.9 Disorder of kidney and ureter, unspecified; E78.00 Pure hypercholesterolemia, unspecified; I11.0 Hypertensive heart disease with heart failure; K59.09 Other constipation; M81.0 Age-related osteoporosis without current pathological fracture; J44.9 Chronic obstructive pulmonary disease, unspecified; Z88.0 Allergy status to penicillin; Z95.5 Presence of coronary angioplasty implant and graft; Z95.1 Presence of aortocoronary bypass graft; Z88.8 Allergy status to other drugs, medicaments and biological substances; Z79.82 Long term (current) use of aspirin; Z79.01 Long term (current) use of anticoagulants; Z79.899 Other long term (current) drug therapy; Z87.11 Personal history of peptic ulcer disease; Z98.890 Other specified postprocedural states
CPT/HCPCS: 36415; 36430; 71046; 80048; 80053; 80162; 81001; 83735; 83880; 85014; 85018; 85025; 86850; 86900; 86901; 86920; 86922; 87086; 93005; 93010; 99223; 99233; 99238; A9270-GY; J0696; J1940; J2470; J3475; J7050; P9016

== ENCOUNTER 2024-09-14 16:33 | Inpatient (IN) | payer MEDICARE, BC ==
[2024-09-14 17:10] LABS: BASOPHILS ABSOLUTE AUTO 0.06 10^3/uL (0.00-0.50); BASOPHILS PERCENT AUTO 0.7 % (0-1); EOSINOPHILS PERCENT AUTO 4.7 % (0-6); HEMATOCRIT 39.8 % (37.0-47.0); HEMOGLOBIN 11.4 g/dL (12.0-16.0); IMMATURE GRAN ABSOLUTE AUTO 0.02 10^3/uL (0.00-0.49); IMMATURE GRAN PERCENT AUTO 0.2 % (0.0-4.9); LYMPHOCYTES ABSOLUTE AUTO 1.08 10^3/uL (0.60-5.00); LYMPHOCYTES PERCENT AUTO 12.8 % (24-44); MEAN CORPUSCULAR HEMOGLOBIN 24.4 pg (27.0-32.0); MEAN CORPUSCULAR HGB CONC 28.6 g/dL (32.0-36.0); MONOCYTES ABSOLUTE AUTO 1.12 10^3/uL (0.00-1.50); MONOCYTES PERCENT AUTO 13.3 % (0-10); NEUTROPHILS ABSOLUTE AUTO 5.77 x10^3/uL (1.80-8.00); NEUTROPHILS PERCENT AUTO 68.3 % (41-71); PLATELET COUNT,PLT 191 10^3/uL (150-400); RED BLOOD CELL COUNT 4.68 x10^6/uL (4.00-5.50); WHITE BLOOD CELL COUNT,WBC 8.5 10^3/uL (4.0-11.0)
[2024-09-14 17:22] LABS: APPEARANCE,URINE CLEAR (CLEAR); BILIRUBIN,URINE NEGATIVE (NEGATIVE); COLOR,URINE YELLOW (YELLOW); GLUCOSE,URINE NEGATIVE (NEGATIVE); KETONES,URINE NEGATIVE (NEGATIVE); LEUKOCYTE ESTERASE,URINE NEGATIVE (NEGATIVE); NITRITE,URINE NEGATIVE (NEGATIVE); OCCULT BLOOD,URINE NEGATIVE (NEGATIVE); PH,URINE 5.5 (4.5-8.0); PROTEIN,URINE NEGATIVE (NEGATIVE); UROBILINOGEN,URINE 0.2 EU/dL (0.2-1.0)
[2024-09-14 17:31] LABS: ALBUMIN 2.9 g/dL (3.4-5.0); C-REACTIVE PROTEIN 4.71 mg/dL (<=0.50); CALCIUM 9.6 mg/dL (8.4-10.1); CREATININE 1.3 mg/dL (0.6-1.0); EST CRCL DRUG DOSING (CG) 21.01 mL/min; MAGNESIUM 1.6 mg/dL (1.8-2.4); POTASSIUM,K 4.7 mEq/L (3.5-5.0); PROTEIN TOTAL,TP 6.6 g/dL (6.4-8.2)
[2024-09-14] MEDS ORDERED: Sodium Chloride 0.9% 10 ML Syringe FLUSH PRN (17:41)
[2024-09-14] MEDS ORDERED: Ondansetron 4 MG/2 ML SDV IV PRN (18:09)
[2024-09-14] MEDS ORDERED: Acetaminophen 325 MG Tab PO PRN (18:09)
[2024-09-14] MEDS ORDERED: Ondansetron 4 MG Tab.DIS PO PRN (18:09)
[2024-09-14] MEDS ORDERED: Hypromellose 0.3% Ophth Soln 15 ML Bottle EYEBOTH PRN (18:11)
[2024-09-14] MEDS: Furosemide 40 MG/4 ML VIAL IVPUSH ONE (18:25)
[2024-09-14] MEDS: Magnesium Oxide 400 MG Tab PO ONE (18:26)
[2024-09-14] MEDS: Potassium Chloride 20 MEQ Tab.ER PO SCH (18:26)
[2024-09-14] MEDS: Pantoprazole 40 MG Tab.CR PO SCH (19:15)
[2024-09-15] MEDS: Metoprolol Succinate 25 MG Tab.ER PO SCH (07:41)
[2024-09-15] MEDS: Aspirin 81 MG Tab.EC PO SCH (07:42)
[2024-09-15] MEDS: Ferrous Sulfate 324 MG Tab.EC PO SCH (07:43)
[2024-09-15] MEDS: Sennosides 8.6 MG Tab PO SCH (07:43)
[2024-09-15] MEDS: Furosemide 40 MG/4 ML VIAL IVPUSH SCH (07:43)
[2024-09-15] MEDS: Acetaminophen 325 MG Tab PO SCH (07:43)
[2024-09-15 07:53] LABS: ALBUMIN 2.9 g/dL (3.4-5.0); BILIRUBIN TOTAL 1.1 mg/dL (0.0-1.0); C-REACTIVE PROTEIN 4.66 mg/dL (<=0.50); CALCIUM 9.3 mg/dL (8.4-10.1); CREATININE 1.2 mg/dL (0.6-1.0); EST CRCL DRUG DOSING (CG) 21.19 mL/min; POTASSIUM,K 3.7 mEq/L (3.5-5.0)
[2024-09-15 07:56] LABS: BASOPHILS ABSOLUTE AUTO 0.04 10^3/uL (0.00-0.50); BASOPHILS PERCENT AUTO 0.5 % (0-1); EOSINOPHILS ABSOLUTE AUTO 0.52 10^3/uL (0.00-1.50); EOSINOPHILS PERCENT AUTO 7.1 % (0-6); HEMOGLOBIN 10.9 g/dL (12.0-16.0); IMMATURE GRAN ABSOLUTE AUTO 0.03 10^3/uL (0.00-0.49); IMMATURE GRAN PERCENT AUTO 0.4 % (0.0-4.9); LYMPHOCYTES ABSOLUTE AUTO 1.01 10^3/uL (0.60-5.00); LYMPHOCYTES PERCENT AUTO 13.7 % (24-44); MEAN CORPUSCULAR HEMOGLOBIN 24.3 pg (27.0-32.0); MEAN CORPUSCULAR HGB CONC 28.7 g/dL (32.0-36.0); MEAN CORPUSCULAR VOLUME 84.8 fL (83.0-97.0); MONOCYTES ABSOLUTE AUTO 0.98 10^3/uL (0.00-1.50); MONOCYTES PERCENT AUTO 13.3 % (0-10); NEUTROPHILS ABSOLUTE AUTO 4.79 x10^3/uL (1.80-8.00); PLATELET COUNT,PLT 184 10^3/uL (150-400); RED BLOOD CELL COUNT 4.48 x10^6/uL (4.00-5.50); WHITE BLOOD CELL COUNT,WBC 7.4 10^3/uL (4.0-11.0)
[2024-09-15] MEDS ORDERED: Non-Formulary Medication 1 Each (Pravastatin 40 MG Tablet) PO SCH (08:00)
[2024-09-15] MEDS: Digoxin 125 MCG Tab PO SCH (11:48)
[2024-09-16 07:18] LABS: BASOPHILS ABSOLUTE AUTO 0.03 10^3/uL (0.00-0.50); BASOPHILS PERCENT AUTO 0.4 % (0-1); EOSINOPHILS ABSOLUTE AUTO 0.41 10^3/uL (0.00-1.50); EOSINOPHILS PERCENT AUTO 5.5 % (0-6); HEMOGLOBIN 10.7 g/dL (12.0-16.0); IMMATURE GRAN ABSOLUTE AUTO 0.01 10^3/uL (0.00-0.49); IMMATURE GRAN PERCENT AUTO 0.1 % (0.0-4.9); LYMPHOCYTES ABSOLUTE AUTO 1.04 10^3/uL (0.60-5.00); MEAN CORPUSCULAR HEMOGLOBIN 24.6 pg (27.0-32.0); MEAN CORPUSCULAR HGB CONC 28.9 g/dL (32.0-36.0); MEAN CORPUSCULAR VOLUME 85.1 fL (83.0-97.0); MONOCYTES ABSOLUTE AUTO 0.85 10^3/uL (0.00-1.50); MONOCYTES PERCENT AUTO 11.5 % (0-10); NEUTROPHILS ABSOLUTE AUTO 5.08 x10^3/uL (1.80-8.00); NEUTROPHILS PERCENT AUTO 68.5 % (41-71); PLATELET COUNT,PLT 169 10^3/uL (150-400); RED BLOOD CELL COUNT 4.35 x10^6/uL (4.00-5.50); WHITE BLOOD CELL COUNT,WBC 7.4 10^3/uL (4.0-11.0)
[2024-09-16 07:31] LABS: ALBUMIN 2.8 g/dL (3.4-5.0); BILIRUBIN TOTAL 1.2 mg/dL (0.0-1.0); C-REACTIVE PROTEIN 5.53 mg/dL (<=0.50); CALCIUM 9.3 mg/dL (8.4-10.1); CREATININE 1.1 mg/dL (0.6-1.0); EST CRCL DRUG DOSING (CG) 23.11 mL/min; POTASSIUM,K 3.7 mEq/L (3.5-5.0); PROTEIN TOTAL,TP 6.2 g/dL (6.4-8.2)
[2024-09-17 07:08] LABS: BASOPHILS ABSOLUTE AUTO 0.04 10^3/uL (0.00-0.50); BASOPHILS PERCENT AUTO 0.5 % (0-1); EOSINOPHILS ABSOLUTE AUTO 0.39 10^3/uL (0.00-1.50); EOSINOPHILS PERCENT AUTO 4.7 % (0-6); HEMATOCRIT 33.9 % (37.0-47.0); IMMATURE GRAN ABSOLUTE AUTO 0.02 10^3/uL (0.00-0.49); IMMATURE GRAN PERCENT AUTO 0.2 % (0.0-4.9); LYMPHOCYTES ABSOLUTE AUTO 1.28 10^3/uL (0.60-5.00); LYMPHOCYTES PERCENT AUTO 15.4 % (24-44); MEAN CORPUSCULAR HEMOGLOBIN 24.8 pg (27.0-32.0); MEAN CORPUSCULAR HGB CONC 29.5 g/dL (32.0-36.0); MEAN CORPUSCULAR VOLUME 84.1 fL (83.0-97.0); MONOCYTES PERCENT AUTO 10.8 % (0-10); NEUTROPHILS ABSOLUTE AUTO 5.68 x10^3/uL (1.80-8.00); NEUTROPHILS PERCENT AUTO 68.4 % (41-71); PLATELET COUNT,PLT 172 10^3/uL (150-400); RED BLOOD CELL COUNT 4.03 x10^6/uL (4.00-5.50); WHITE BLOOD CELL COUNT,WBC 8.3 10^3/uL (4.0-11.0)
[2024-09-17 07:26] LABS: CALCIUM 9.1 mg/dL (8.4-10.1); CREATININE 1.2 mg/dL (0.6-1.0); EST CRCL DRUG DOSING (CG) 21.12 mL/min
[2024-09-17 07:34] VITALS: BP 126/53; PULSE 92
[2024-09-17] MEDS ORDERED: Furosemide 40 MG Tab PO ONE (12:11)
== END 2024-09-17 12:44 | disposition home health service (06) | DRG 293 ==
LOC: CC.ED 16:33 → CC.MS 17:53 → OBSVTOIN 09-15 12:26
PROVIDERS: ADMIT Nurse Practitioner Family; ATTEND Nurse Practitioner Family
DX: I11.0 Hypertensive heart disease with heart failure (principal); M81.0 Age-related osteoporosis without current pathological fracture; R60.0 Localized edema; J44.9 Chronic obstructive pulmonary disease, unspecified; R53.1 Weakness; E78.00 Pure hypercholesterolemia, unspecified; I48.91 Unspecified atrial fibrillation; I50.9 Heart failure, unspecified; R41.0 Disorientation, unspecified; Z95.1 Presence of aortocoronary bypass graft; R53.81 Other malaise; Z88.1 Allergy status to other antibiotic agents; Z88.0 Allergy status to penicillin; Z88.8 Allergy status to other drugs, medicaments and biological substances; Z95.5 Presence of coronary angioplasty implant and graft; Z79.82 Long term (current) use of aspirin; Z87.11 Personal history of peptic ulcer disease; Z79.899 Other long term (current) drug therapy; Z98.890 Other specified postprocedural states
CPT/HCPCS: 36415 ×2; 71045; 80053 ×2; 81003; 83735; 83880; 84484; 85025 ×2; 86140 ×2; 87428; 93005; 96374; 96376; 97161; 99285; A9270 ×12; G0378 ×3; J1940 ×2; 80048; 93010; 99223; 99232; 99233; 99238

== ENCOUNTER 2025-03-03 11:50 | Inpatient (IN) | payer MEDICARE, BC ==
[2025-03-03] MEDS ORDERED: Sodium Chloride 0.9% 10 ML Syringe FLUSH PRN (12:14)
[2025-03-03] MEDS: Sodium Chloride 0.9% 500 ML IV SCH (12:28)
[2025-03-03 12:38] LABS: BASOPHILS ABSOLUTE AUTO 0.05 10^3/uL (0.00-0.50); BASOPHILS PERCENT AUTO 0.6 % (0-1); EOSINOPHILS ABSOLUTE AUTO 0.05 10^3/uL (0.00-1.50); EOSINOPHILS PERCENT AUTO 0.6 % (0-6); HEMATOCRIT 40.4 % (37.0-47.0); HEMOGLOBIN 12.9 g/dL (12.0-16.0); IMMATURE GRAN ABSOLUTE AUTO 0.02 10^3/uL (0.00-0.49); IMMATURE GRAN PERCENT AUTO 0.2 % (0.0-4.9); LYMPHOCYTES ABSOLUTE AUTO 0.87 10^3/uL (0.60-5.00); LYMPHOCYTES PERCENT AUTO 10.3 % (24-44); MEAN CORPUSCULAR HGB CONC 31.9 g/dL (32.0-36.0); MEAN CORPUSCULAR VOLUME 97.1 fL (83.0-97.0); MONOCYTES ABSOLUTE AUTO 1.19 10^3/uL (0.00-1.50); MONOCYTES PERCENT AUTO 14.1 % (0-10); NEUTROPHILS ABSOLUTE AUTO 6.28 x10^3/uL (1.80-8.00); NEUTROPHILS PERCENT AUTO 74.2 % (41-71); PLATELET COUNT,PLT 153 10^3/uL (150-400); RED BLOOD CELL COUNT 4.16 x10^6/uL (4.00-5.50); WHITE BLOOD CELL COUNT,WBC 8.5 10^3/uL (4.0-11.0)
[2025-03-03 12:55] LABS: LACTIC ACID 2.5 mmol/L (0.4-2.0)
[2025-03-03 12:57] LABS: ALBUMIN 3.2 g/dL (3.4-5.0); BILIRUBIN TOTAL 1.7 mg/dL (0.0-1.0); C-REACTIVE PROTEIN 2.1 mg/dL (<=0.50); CALCIUM 9.1 mg/dL (8.4-10.1); CREATININE 1.4 mg/dL (0.6-1.0); EST CRCL DRUG DOSING (CG) 19.12 mL/min; MAGNESIUM 1.7 mg/dL (1.8-2.4); POTASSIUM,K 4.7 mEq/L (3.5-5.0); PROTEIN TOTAL,TP 6.7 g/dL (6.4-8.2)
[2025-03-03 13:14] LABS: CORONAVIRUS COVID-19 NAA NEGATIVE (NEGATIVE); INFLUENZA A NAA NEGATIVE (NEGATIVE); INFLUENZA B NAA NEGATIVE (NEGATIVE); RESPIRATORY SYNCYTIAL VIR NAA POSITIVE (NEGATIVE)
[2025-03-03] MEDS ORDERED: Acetaminophen 325 MG Tab PO PRN (14:37)
[2025-03-03] MEDS ORDERED: Ondansetron 4 MG/2 ML SDV IV PRN (14:37)
[2025-03-03] MEDS ORDERED: Ondansetron 4 MG Tab.DIS PO PRN (14:37)
[2025-03-03] MEDS: Levofloxacin/Dextrose 5%-Water 750 MG in Premix Bag 1 BAG IV ONE (14:44)
[2025-03-03] MEDS: methylPREDNISolone Sodium Succinate 40 MG/1 ML SDV IVPUSH SCH (14:46)
[2025-03-03 14:51] LABS: APPEARANCE,URINE CLEAR (CLEAR); BILIRUBIN,URINE NEGATIVE (NEGATIVE); COLOR,URINE YELLOW (YELLOW); GLUCOSE,URINE NEGATIVE (NEGATIVE); KETONES,URINE NEGATIVE (NEGATIVE); LEUKOCYTE ESTERASE,URINE TRACE (NEGATIVE); NITRITE,URINE NEGATIVE (NEGATIVE); OCCULT BLOOD,URINE TRACE-INTACT (NEGATIVE); PH,URINE 5.5 (4.5-8.0); PROTEIN,URINE NEGATIVE (NEGATIVE); UROBILINOGEN,URINE 0.2 EU/dL (0.2-1.0)
[2025-03-03] MEDS: Sodium Chloride 0.9% 1,000 ML IV SCH (14:52)
[2025-03-03 15:01] LABS: BACTERIA,URINE NOT SEEN /HPF (NOT SEEN); RBC,URINE 0-5 /HPF (0-5); SQUAMOUS EPITHELIAL CELLS,UR OCCASIONAL /HPF (NOT SEEN); WBC,URINE 30-40 /HPF (0-5)
[2025-03-03] MEDS: Albuterol/Ipratropium 3.0-0.5 MG/3 ML Neb Soln NEB SCH (16:01)
[2025-03-03] MEDS: Hypromellose 0.3% Ophth Soln 15 ML Bottle EYEBOTH PRN (16:01)
[2025-03-03] MEDS: Ferrous Sulfate 324 MG Tab.EC PO SCH (18:18)
[2025-03-03] MEDS: Potassium Chloride 20 MEQ Tab.ER PO SCH (19:42)
[2025-03-03] MEDS: Furosemide 40 MG Tab PO SCH (19:43)
[2025-03-03] MEDS: Pantoprazole 40 MG Tab.CR PO SCH (19:43)
[2025-03-04] MEDS: Pravastatin 20 MG Tab PO SCH (07:55)
[2025-03-04] MEDS: Metoprolol Succinate 100 MG Tab.ER PO SCH (07:58)
[2025-03-04] MEDS: Acetaminophen 325 MG Tab PO SCH (07:58)
[2025-03-04] MEDS: Digoxin 125 MCG Tab PO SCH (07:59)
[2025-03-04] MEDS: Sennosides 8.6 MG Tab PO SCH (07:59)
[2025-03-04] MEDS: Aspirin 81 MG Tab.EC PO SCH (08:00)
[2025-03-04 08:18] LABS: BASOPHILS ABSOLUTE AUTO 0.03 10^3/uL (0.00-0.50); BASOPHILS PERCENT AUTO 0.4 % (0-1); EOSINOPHILS ABSOLUTE AUTO 0.01 10^3/uL (0.00-1.50); EOSINOPHILS PERCENT AUTO 0.1 % (0-6); HEMATOCRIT 38.3 % (37.0-47.0); HEMOGLOBIN 12.2 g/dL (12.0-16.0); IMMATURE GRAN ABSOLUTE AUTO 0.02 10^3/uL (0.00-0.49); IMMATURE GRAN PERCENT AUTO 0.3 % (0.0-4.9); LYMPHOCYTES ABSOLUTE AUTO 0.78 10^3/uL (0.60-5.00); LYMPHOCYTES PERCENT AUTO 11.2 % (24-44); MEAN CORPUSCULAR HEMOGLOBIN 30.6 pg (27.0-32.0); MEAN CORPUSCULAR HGB CONC 31.9 g/dL (32.0-36.0); MONOCYTES ABSOLUTE AUTO 0.98 10^3/uL (0.00-1.50); MONOCYTES PERCENT AUTO 14.1 % (0-10); NEUTROPHILS ABSOLUTE AUTO 5.14 x10^3/uL (1.80-8.00); NEUTROPHILS PERCENT AUTO 73.9 % (41-71); PLATELET COUNT,PLT 138 10^3/uL (150-400); RED BLOOD CELL COUNT 3.99 x10^6/uL (4.00-5.50)
[2025-03-04 08:26] LABS: ALBUMIN 2.9 g/dL (3.4-5.0); BILIRUBIN TOTAL 0.9 mg/dL (0.0-1.0); C-REACTIVE PROTEIN 3.39 mg/dL (<=0.50); CALCIUM 8.8 mg/dL (8.4-10.1); CREATININE 1.4 mg/dL (0.6-1.0); EST CRCL DRUG DOSING (CG) 18.12 mL/min; PROTEIN TOTAL,TP 6.1 g/dL (6.4-8.2)
[2025-03-04] MEDS ORDERED: Enoxaparin 30 MG/0.3 ML Syringe SUBCUT SCH (12:00)
[2025-03-04] MEDS: Furosemide 40 MG Tab PO SCH (16:24)
[2025-03-05] MEDS: Levofloxacin/Dextrose 5%-Water 500 MG in Premix Bag 1 BAG IV SCH (07:39)
[2025-03-05 07:56] LABS: BASOPHILS ABSOLUTE AUTO 0.01 10^3/uL (0.00-0.50); BASOPHILS PERCENT AUTO 0.1 % (0-1); EOSINOPHILS ABSOLUTE AUTO 0.02 10^3/uL (0.00-1.50); EOSINOPHILS PERCENT AUTO 0.2 % (0-6); HEMATOCRIT 36.4 % (37.0-47.0); HEMOGLOBIN 11.7 g/dL (12.0-16.0); IMMATURE GRAN ABSOLUTE AUTO 0.03 10^3/uL (0.00-0.49); IMMATURE GRAN PERCENT AUTO 0.3 % (0.0-4.9); LYMPHOCYTES ABSOLUTE AUTO 1.06 10^3/uL (0.60-5.00); LYMPHOCYTES PERCENT AUTO 10.4 % (24-44); MEAN CORPUSCULAR HEMOGLOBIN 30.5 pg (27.0-32.0); MEAN CORPUSCULAR HGB CONC 32.1 g/dL (32.0-36.0); MONOCYTES ABSOLUTE AUTO 1.17 10^3/uL (0.00-1.50); MONOCYTES PERCENT AUTO 11.4 % (0-10); NEUTROPHILS ABSOLUTE AUTO 7.94 x10^3/uL (1.80-8.00); NEUTROPHILS PERCENT AUTO 77.6 % (41-71); PLATELET COUNT,PLT 151 10^3/uL (150-400); RED BLOOD CELL COUNT 3.83 x10^6/uL (4.00-5.50); WHITE BLOOD CELL COUNT,WBC 10.2 10^3/uL (4.0-11.0)
[2025-03-05 08:17] LABS: ALBUMIN 2.9 g/dL (3.4-5.0); BILIRUBIN TOTAL 0.6 mg/dL (0.0-1.0); C-REACTIVE PROTEIN 1.92 mg/dL (<=0.50); CALCIUM 9.3 mg/dL (8.4-10.1); CREATININE 1.3 mg/dL (0.6-1.0); EST CRCL DRUG DOSING (CG) 19.52 mL/min; POTASSIUM,K 3.8 mEq/L (3.5-5.0)
[2025-03-06 08:07] LABS: BASOPHILS ABSOLUTE AUTO 0.01 10^3/uL (0.00-0.50); BASOPHILS PERCENT AUTO 0.1 % (0-1); EOSINOPHILS ABSOLUTE AUTO 0.02 10^3/uL (0.00-1.50); EOSINOPHILS PERCENT AUTO 0.2 % (0-6); HEMATOCRIT 34.6 % (37.0-47.0); HEMOGLOBIN 11.2 g/dL (12.0-16.0); IMMATURE GRAN ABSOLUTE AUTO 0.02 10^3/uL (0.00-0.49); IMMATURE GRAN PERCENT AUTO 0.2 % (0.0-4.9); LYMPHOCYTES PERCENT AUTO 12.2 % (24-44); MEAN CORPUSCULAR HEMOGLOBIN 30.9 pg (27.0-32.0); MEAN CORPUSCULAR HGB CONC 32.4 g/dL (32.0-36.0); MEAN CORPUSCULAR VOLUME 95.3 fL (83.0-97.0); MONOCYTES ABSOLUTE AUTO 1.16 10^3/uL (0.00-1.50); MONOCYTES PERCENT AUTO 11.8 % (0-10); NEUTROPHILS ABSOLUTE AUTO 7.41 x10^3/uL (1.80-8.00); NEUTROPHILS PERCENT AUTO 75.5 % (41-71); PLATELET COUNT,PLT 158 10^3/uL (150-400); RED BLOOD CELL COUNT 3.63 x10^6/uL (4.00-5.50); WHITE BLOOD CELL COUNT,WBC 9.8 10^3/uL (4.0-11.0)
[2025-03-06 08:21] LABS: BILIRUBIN TOTAL 0.7 mg/dL (0.0-1.0); C-REACTIVE PROTEIN 1.28 mg/dL (<=0.50); CALCIUM 9.1 mg/dL (8.4-10.1); CREATININE 1.3 mg/dL (0.6-1.0); EST CRCL DRUG DOSING (CG) 19.52 mL/min; POTASSIUM,K 3.7 mEq/L (3.5-5.0); PROTEIN TOTAL,TP 6.2 g/dL (6.4-8.2)
[2025-03-06 12:43] VITALS: BP 122/61; PULSE 88
== END 2025-03-06 14:54 | disposition home health service (06) | DRG 871 ==
LOC: CC.ED 11:50 → UNDOADMIN 14:15 → CC.MS 14:15
PROVIDERS: ADMIT Nurse Practitioner Family; ATTEND Physician Assistant Medical
DX: A41.9 Sepsis, unspecified organism (principal); J18.9 Pneumonia, unspecified organism; J12.1 Respiratory syncytial virus pneumonia; E87.20 Acidosis, unspecified; J44.0 Chronic obstructive pulmonary disease with (acute) lower respiratory infection; N30.00 Acute cystitis without hematuria; I48.91 Unspecified atrial fibrillation; R53.1 Weakness; R41.0 Disorientation, unspecified; K59.09 Other constipation; M81.0 Age-related osteoporosis without current pathological fracture; I25.10 Atherosclerotic heart disease of native coronary artery without angina pectoris; R50.9 Fever, unspecified; B33.8 Other specified viral diseases; E78.00 Pure hypercholesterolemia, unspecified; I10 Essential (primary) hypertension; Z95.5 Presence of coronary angioplasty implant and graft; Z95.1 Presence of aortocoronary bypass graft; Z98.890 Other specified postprocedural states; Z88.0 Allergy status to penicillin; J44.9 Chronic obstructive pulmonary disease, unspecified; F17.200 Nicotine dependence, unspecified, uncomplicated; Z88.8 Allergy status to other drugs, medicaments and biological substances; Z79.82 Long term (current) use of aspirin; Z79.899 Other long term (current) drug therapy
CPT/HCPCS: 0241U; 36415; 71045; 80053; 80162; 81001; 83605; 83735; 85025; 86140; 87040; 87086; 94640; 96360; 97161-GP; 99223; 99232; 99233; 99239; 99285-25; A9270-GY; J1956; J2919; J7030; J7040